=== PATIENT | male | born 1960 | race Caucasian/White ===

== ENCOUNTER → 2017-03-18 16:39 | Outpatient (CLI) | payer MEDICAID, SELFPAY ==
--- NOTE | 2017-03-18 | XR_ITS ---
XR chest 2V INDICATION: No history given COMPARISON: Portable upright chest 08/28/2016 FINDINGS: The cardiovascular structures are unremarkable. No mediastinal shift or hilar mass is evident. The lungs are well expanded and clear bilaterally. The costophrenic sulci are sharp. No significant bony anomalies are apparent. IMPRESSION: Negative chest.
== END ==
PROVIDERS: PCP Family Medicine; Visit Provider Family Medicine
DX: R06.02 Shortness of breath (principal)
CPT/HCPCS: 71046

== ENCOUNTER → 2017-04-01 12:57 | Outpatient (CLI) | payer MEDICAID, SELFPAY ==
[2017-04-01 15:11] VITALS: PULSE 64; PULSE 67
== END ==
PROVIDERS: Family Provider Family Medicine; PCP Family Medicine; Visit Provider Family Medicine
DX: R06.02 Shortness of breath (principal)
CPT/HCPCS: 94060; 94640; 94726; 94729

== ENCOUNTER → 2017-04-19 06:53 | Outpatient (CLI) | payer MEDICAID, SELFPAY ==
--- NOTE | 2017-04-19 07:47 | CT_ITS ---
EXAM: CT LUNG LOW DOSE WO CONTRAST COMPARISON: None HISTORY: 56-year-old male asymptomatic with greater than 35 pack-year smoking history ORDERING PHYSICIAN: Simone Malloy MD PATIENT AGE: 56 years TECHNIQUE: The exam was performed on a GE Light Speed [address] scanner using 2.95 mGy CTDI. A low dose helical CT CHEST was performed on a multi-detector scanner The LDCT was performed in a facility that meets the criteria for the screening program. Data regarding this exam was submitted to [employer] which is an approved registry. The order for this exam indicates that it came as a result of a lung cancer screening counseling shard decision-making visit that included all the elements required of such a visit including smoking cessation. The radiologist interpreting this exam meets the [facility] criteria for the LDCT lung cancer screening program. The exam is reported using the Lung-RADS classification scale and reported to the [employer] registry. NOTE: THIS STUDY WAS PERFORMED FOR THE SPECIFIC PURPOSES OF LUNG CANCER SCREENING AND IS NOT AN ALTERNATIVE TO DIAGNOSTIC CHEST CT. RADIATION DOSE: CTDI vol(CT dose Index-volume) = 2.95mG DLP (Dose Length Product) = 113.94 mGcm FINDINGS: There are centrilobular and paraseptal emphysematous changes. There is a 3 mm noncalcified left upper lobe nodule. No suspicious nodules evident. There are scattered small bilateral axillary lymph nodes are calcified right hilar lymph nodes. Coronary artery calcifications are present. Small hiatal hernia. IMPRESSION: 1. Lung RADS Category: 2, benign 2. Other findings: Coronary artery calcifications suggesting coronary artery disease Old granulomatous disease. Centrilobular and paraseptal emphysema RECOMMENDATIONS: 12 month LDCT screening
== END ==
PROVIDERS: Family Provider Family Medicine; PCP Family Medicine; Visit Provider Family Medicine
DX: Z87.891 Personal history of nicotine dependence (principal); Z12.2 Encounter for screening for malignant neoplasm of respiratory organs

== ENCOUNTER → 2017-04-22 13:33 | Outpatient (POV) | payer MEDICAID, SELFPAY | PROVIDERS: Family Provider Family Medicine; PCP Family Medicine; Visit Provider Specialist | DX: M79.662 Pain in left lower leg (principal); M79.661 Pain in right lower leg | CPT/HCPCS: 95886; 95907 ==

== ENCOUNTER 2025-01-07 09:36 | Outpatient (CLI) | payer MEDICAID, SELFPAY ==
--- OUTSIDE RECORDS SUMMARY | 2025-01-07 09:40 | XMS_ITS | Data Portability ---
Author Organization [facility] Address [address] [facility] [place] [facility] [place] [address] Assessment Encounter Date Assessment Date Assessment LastModified by Organization Details LastModified Time 07/30/2024 07/30/2024 will call [employer], number given Not available 07/30/2024 09:50:35 08/31/2024 08/31/2024 Will return for fasting labs [email or web address] Not available 08/31/2024 10:01:55 12/21/2024 12/21/2024 declines flu Not available 1 19:40:26 Plan of Treatment Reminders Order Date Submit Date Provider Last Modified By Organization Details Last Modified Time Details Appointments None recorded. Lab CBC w/ auto diff 2024 EBER [facility], [address], [address] [address], [place], [address], 13:07:43 lipid panel, serum 2024 025 EBER [facility], [address], [place] [address], [place], [address], 13:07:44 CMP, serum or plasma 2024 025 EBER [facility], [address], [place] [address], [place], [address], 13:07:44 HbA1c (hemoglobin A1c), blood 2024 025 EBER [facility], [address], [place], [place], [address], 13:07:45 hepatitis panel (A+B+C), acute, serum 2024 025 EBER [facility], [address], [place] [address], [place], [address], 13:07:43 vitamin D, 25-hydroxy, total, serum 2024 025 E[facility], [address], [place], [place], [address], 13:07:46 testosteron e, free + total, serum 2024 025 E[facility], [address], [place], [place], [address], 13:07:45 CBC w/ auto diff 2024 025 [facility], [address], [place], [place], [address], 16:08:00 CMP, serum or plasma 2024 025 [facility], [address], [place] [address], [place], [address], 16:08:00 lipid panel, serum 2024 025 [facility], [address], [place], [place], [address], 5 16:08:01 HbA1c (hemoglobin A1c), blood 2024 025 [facility], [address] [place] [address], [address], 10:22:02 cobalamin and folate panel, serum 2024 025 [facility], [address], [place], [place], [address], 5 16:08:01 vitamin D, 25-hydroxy, total, serum 2024 025 [facility], [address], [place] [address], [place], [address], 5 16:08:03 TSH + free T4, serum 2024 025 [facility], [address], [place], [place], [address], 16:07:59 testosteron e, free + total, serum 2024 025 [facility], [address], [place], [place], [address], 5 16:08:02 angelina-bar r virus (ebv) IgG + IgM panel, serum 2024 025 [facility], [address], [place] [address], [place], [address], 5 16:08:01 PSA, serum or plasma 2024 025 [facility], [address], [place] [address], [place], [address], 16:08:02 Referral None recorded. Procedures None recorded. Surgeries None recorded. Imaging None recorded. Medication Orders senna 8.6 mg tablet 2024 [facility], [address] [place], [address], 5 14:04:15 Citrucel 500 mg tablet 2024 [facility], [address] [place], [address], 5 14:04:42 lidocaine 3 %-hydrocort isone 0.5 % rectal cream 2024 025 [facility], [address], [address], 5 14:05:15 atorvastati n 20 mg tablet 2024 025 [facility], [address], [address], 5 14:04:17 lisinopril 40 mg tablet 2024 025 [facility], [address], [address], 5 09:29:17 Farxiga 10 mg tablet 2024 025 [facility], [address], [address], 5 09:30:24 mupirocin 2 % topical ointment 2024 025 [facility], [address], [address], 5 09:34:22 amlodipine 5 mg tablet 2024 025 [facility], [address], [address], 5 09:37:36 Farxiga 10 mg tablet 2024 025 [facility], [address], [address], 5 09:50:38 methocarbam ol 500 mg tablet 2024 025 [facility], [address], [address], 5 09:37:37 lisinopril 40 mg tablet 2024 025 [facility], [address], [address], 5 16:46:28 glipizide 5 mg tablet 2024 025 [facility], [address], [address], 16:46:26 metformin 1,000 mg tablet 2024 025 [facility], [address], [address], 16:46:28 methocarbam ol 500 mg tablet 2024 025 [facility], [address], [address], 16:47:31 ibuprofen 800 mg tablet 2024 025 [facility], [address], [address], 5 16:47:31 prednisone 20 mg tablet 2024 025 [facility], [address], [address], 5 05:01:32 Patient TargetsNo targets recorded. Patient Instructions Encounter Date Encounter Id Patient Instructions Last Modified By Organization Details Last Modified Time 07/06/2024 [id number] learning about type 2 diabetes [email or web address] Not available 07/06/2024 16:46:19 type 2 diabetes: care instructions [email or web address] Not available 07/06/2024 16:46:19 All questions answered and pt/guardian satisfied with treatment plan. Call with changes RTC or ED if symptoms change or worsen Keep next interval checkup Cont. chronic meds as prescribed Chronic conditions are stable Discussed natural and expected course of this diagnosis and need to alert the office if symptoms do not follow expected course or if any worsens [email or web address] Not available 07/07/2024 21:21:30 07/30/2024 [id number] learning about type 2 diabetes [email or web address] Not available 07/30/2024 09:37:29 type 2 diabetes: care instructions [email or web address] Not available 07/30/2024 09:37:29 All questions answered and pt/guardian satisfied with treatment plan. Call with changes RTC or ED if symptoms change or worsen Keep next interval checkup Cont. chronic meds as prescribed Chronic conditions are stable Discussed natural and expected course of this diagnosis and need to alert the office if symptoms do not follow expected course or if any worsens [email or web address] Not available 07/30/2024 09:31:45 08/31/2024 [id number] learning about type 2 diabetes [email or web address] Not available 08/31/2024 09:29:10 type 2 diabetes: care instructions [email or web address] Not available 08/31/2024 09:29:10 medical record request* - please provide any prior chest CT or LDCT Not available 12/11/2024 16:42:18 medical record request* [email or web address] Not available 09/24/2024 17:40:04 skin lesions: care instructions Not available 08/31/2024 09:34:17 All questions answered and pt/guardian satisfied with treatment plan. Call with changes RTC or ED if symptoms change or worsen Keep next interval checkup Cont. chronic meds as prescribed Chronic conditions are stable Discussed natural and expected course of this diagnosis and need to alert the office if symptoms do not follow expected course or if any worsens [email or web address] Not available 08/31/2024 10:01:46 12/21/2024 [id number] learning about type 2 diabetes [email or web address] Not available 12/21/2024 10:01:33 type 2 diabetes: care instructions [email or web address] Not available 12/21/2024 10:01:33 high cholesterol : care instructions [email or web address] Not available 12/21/2024 10:01:33 hemorrhoids: car e instructions [email or web address] Not available 12/27/2024 19:40:33 All questions answered and pt/guardian satisfied with treatment plan. Call with changes RTC or ED if symptoms change or worsen Keep next interval checkup Cont. chronic meds as prescribed Chronic conditions are stable Discussed natural and expected course of this diagnosis and need to alert the office if symptoms do not follow expected course or if any worsens [email or web address] Not available 12/27/2024 19:40:33 12/24/2024 [id number] constipation: care instructions [email or web address] Not available 12/24/2024 14:04:11 All questions answered and pt/guardian satisfied with treatment plan. Call with changes RTC or ED if symptoms change or worsen Keep next interval checkup Cont. chronic meds as prescribed Chronic conditions are stable Discussed natural and expected course of this diagnosis and need to alert the office if symptoms do not follow expected course or if any worsens [email or web address] Not available 12/24/2024 17:29:03 Reason for Referral None Reported. Results Created Date Observation Date Name Description Value Unit Range Abnormal Flag Note LastModifiedBy Organization Detail LastModifiedTime 09/01/19 25 08/31/2024 HbA1c (hemo globi n A1c), blood HbA1C 7.9 % Not Available [address], [address], 08/31/2024 09:58:56 09/04/19 25 09/04/2024 TSH+F REE T4 TSH 1.720 uIU/m L 0.450- 4.500 normal Not Available [facility] ([facility]) [address] [place], [address], 09/07/2024 16:07:59 09/04/19 25 09/04/2024 TSH+F REE T4 T4,free(dire ct) 1.31 NG/dL 0.82-1 .77 normal Not Available [facility] ([facility]) [address] [place], [address], 09/07/2024 16:07:59 09/04/19 25 09/04/2024 CBC WITH DIFFE RENTI AL/PL ATELE T WBC 5.7 x10e3 /uL 3.4-10 .8 normal Not Available [facility] ([facility]) [address] [facility], [place], [address], 09/07/2024 16:08:00 09/04/19 25 09/04/2024 CBC WITH DIFFE RENTI AL/PL ATELE T RBC 5.14 x10e6 /uL 4.14-5 .80 normal Not Available [facility] ([facility]) [address] [facility], [place], [address], 09/07/2024 16:08:00 09/04/19 25 09/04/2024 CBC WITH DIFFE RENTI AL/PL ATELE T hemoglobin 14.9 g/dL 13.0-1 7.7 normal Not Available [facility] ([facility]) [address] [facility], [place], [address], 09/07/2024 16:08:00 09/04/19 25 09/04/2024 CBC WITH DIFFE RENTI AL/PL ATELE T hematocrit 47.3 % 37.5-5 1.0 normal Not Available [facility] ([facility]) [address] [place], [address], 09/07/2024 16:08:00 09/04/19 25 09/04/2024 CBC WITH DIFFE RENTI AL/PL ATELE T MCV 92 fL 79-97 normal Not Available [facility] ([facility]) [address] [place], [address], 09/07/2024 16:08:00 09/04/19 25 09/04/2024 CBC WITH DIFFE RENTI AL/PL ATELE T MCH 29.0 pg 26.6-3 3.0 normal Not Available [facility] ([facility]) [address] [place], [address], 09/07/2024 16:08:00 09/04/19 25 09/04/2024 CBC WITH DIFFE RENTI AL/PL ATELE T MCHC 31.5 g/dL 31.5-3 5.7 normal Not Available [facility] ([facility]) [address] [facility], [place], [address], 09/07/2024 16:08:00 09/04/19 25 09/04/2024 CBC WITH DIFFE RENTI AL/PL ATELE T RDW 13.0 % 11.6-1 5.4 Not Available [facility] ([facility]) [address] [facility], [place], [address], 09/07/2024 16:08:00 09/04/19 25 09/04/2024 CBC WITH DIFFE RENTI AL/PL ATELE T platelets 197 x10e3 /uL 150-45 0 normal Not Available [facility] ([facility]) [address] [facility], [place], [address], 09/07/2024 16:08:00 09/04/19 25 09/04/2024 CBC WITH DIFFE RENTI AL/PL ATELE T neutrophils 54 % not estab. normal Not Available [facility] ([facility]) [address] [facility], [place], [address], 09/07/2024 16:08:00 09/04/19 25 09/04/2024 CBC WITH DIFFE RENTI AL/PL ATELE T lymphs 32 % not estab. normal Not Available [facility] ([facility]) [address] [place], [address], 09/07/2024 16:08:00 09/04/19 25 09/04/2024 CBC WITH DIFFE RENTI AL/PL ATELE T monocytes 9 % not estab. normal Not Available [facility] ([facility]) [address] [place], [address], 09/07/2024 16:08:00 09/04/19 25 09/04/2024 CBC WITH DIFFE RENTI AL/PL ATELE T eos 3 % not estab. normal Not Available [facility] ([facility]) [address] [place], [address], 09/07/2024 16:08:00 09/04/19 25 09/04/2024 CBC WITH DIFFE RENTI AL/PL ATELE T basos 2 % not estab. normal Not Available [facility] ([facility]) [address] [facility], [place], [address], 09/07/2024 16:08:00 09/04/19 25 09/04/2024 CBC WITH DIFFE RENTI AL/PL ATELE T immature cells LENS MOUNTER Not Available [facility] ([facility]) [address] [place], [address], 09/07/2024 16:08:00 09/04/19 25 09/04/2024 CBC WITH DIFFE RENTI AL/PL ATELE T neutrophils (absolute) 3.1 x10e3 /uL 1.4-7. 0 normal Not Available [facility] ([facility]) [address] [place], [address], 09/07/2024 16:08:00 09/04/19 25 09/04/2024 CBC WITH DIFFE RENTI AL/PL ATELE T lymphs (absolute) 1.8 x10e3 /uL 0.7-3. 1 normal Not Available [facility] ([facility]) [address] [place], [address], 09/07/2024 16:08:00 09/04/19 25 09/04/2024 CBC WITH DIFFE RENTI AL/PL ATELE T monocytes(ab solute) 0.5 x10e3 /uL 0.1-0. 9 normal Not Available [facility] ([facility]) [address] [place], [address], 09/07/2024 16:08:00 09/04/19 25 09/04/2024 CBC WITH DIFFE RENTI AL/PL ATELE T eos (absolute) 0.2 x10e3 /uL 0.0-0. 4 normal Not Available [facility] ([facility]) [address] [facility], [place], [address], 09/07/2024 16:08:00 09/04/19 25 09/04/2024 CBC WITH DIFFE RENTI AL/PL ATELE T baso (absolute) 0.1 x10e3 /uL 0.0-0. 2 normal Not Available [facility] ([facility]) [address] [facility], [place], [address], 09/07/2024 16:08:00 09/04/19 25 09/04/2024 CBC WITH DIFFE RENTI AL/PL ATELE T immature granulocytes 0 % not estab. Not Available [facility] ([facility]) [address] [place], [address], 09/07/2024 16:08:00 09/04/19 25 09/04/2024 CBC WITH DIFFE RENTI AL/PL ATELE T immature grans (abs) 0.0 x10e3 /uL 0.0-0. 1 Not Available [facility] ([facility]) [address] [place], [address], 09/07/2024 16:08:00 09/04/19 25 09/04/2024 CBC WITH DIFFE RENTI AL/PL ATELE T NRBC LENS MOUNTER Not Available [facility] ([facility]) [address] [place], [address], 09/07/2024 16:08:00 09/04/19 25 09/04/2024 CBC WITH DIFFE RENTI AL/PL ATELE T hematology comments: LENS MOUNTER Not Available [facility] ([facility]) [address] [place], [address], 09/07/2024 16:08:00 09/04/19 25 09/04/2024 COMP. METAB OLIC PANEL (14) glucose 151 mg/dL 70-99 above high normal Not Available [facility] ([facility]) [address] [place], [address], 09/07/2024 16:08:00 09/04/19 25 09/04/2024 COMP. METAB OLIC PANEL (14) BUN 20 mg/dL 8-27 normal Not Available [facility] ([facility]) [address] [place], [address], 09/07/2024 16:08:00 09/04/19 25 09/04/2024 COMP. METAB OLIC PANEL (14) creatinine 1.08 mg/dL 0.76-1 .27 normal Not Available [facility] ([facility]) [address] [place], [address], 09/07/2024 16:08:00 09/04/19 25 09/04/2024 COMP. METAB OLIC PANEL (14) eGFR 78 mL/mi n/1.7 3 >59 normal Not Available [facility] ([facility]) [address] [place], [address], 09/07/2024 16:08:00 09/04/19 25 09/04/2024 COMP. METAB OLIC PANEL (14) BUN/creatini ne ratio 19 10-24 normal Not Available [facility] ([facility]) [address] [facility] [place], [address], 09/07/2024 16:08:00 09/04/19 25 09/04/2024 COMP. METAB OLIC PANEL (14) sodium 133 mmol/ L 134-14 4 below low normal Not Available [facility] ([facility]) [address] [facility], [address], 09/07/2024 16:08:00 09/04/19 25 09/04/2024 COMP. METAB OLIC PANEL (14) potassium 4.3 mmol/ L 3.5-5. 2 normal Not Available [facility] ([facility]) [address] [facility] [place], [address], 09/07/2024 16:08:00 09/04/19 25 09/04/2024 COMP. METAB OLIC PANEL (14) chloride 98 mmol/ L 96-106 normal Not Available [facility] ([facility]) [address] [place], [address], 09/07/2024 16:08:00 09/04/19 25 09/04/2024 COMP. METAB OLIC PANEL (14) carbon dioxide, total 18 mmol/ L 20-29 below low normal Not Available [facility] ([facility]) [address], [place], [address], 09/07/2024 16:08:00 09/04/19 25 09/04/2024 COMP. METAB OLIC PANEL (14) calcium 9.5 mg/dL 8.6-10 .2 normal Not Available [facility] ([facility]) [address] [place], [address], 09/07/2024 16:08:00 09/04/19 25 09/04/2024 COMP. METAB OLIC PANEL (14) protein, total 7.2 g/dL 6.0-8. 5 normal Not Available [facility] ([facility]) [address] [facility] [place], [address], 09/07/2024 16:08:00 09/04/19 25 09/04/2024 COMP. METAB OLIC PANEL (14) albumin 4.4 g/dL 3.9-4. 9 normal Not Available [facility] ([facility]) [address] [facility] [place], [address], 09/07/2024 16:08:00 09/04/19 25 09/04/2024 COMP. METAB OLIC PANEL (14) globulin, total 2.8 g/dL 1.5-4. 5 Not Available [facility] ([facility]) [address] [facility], [address], 09/07/2024 16:08:00 09/04/19 25 09/04/2024 COMP. METAB OLIC PANEL (14) bilirubin, total 0.4 mg/dL 0.0-1. 2 normal Not Available [facility] ([facility]) [address] [place], [address], 09/07/2024 16:08:00 09/04/19 25 09/04/2024 COMP. METAB OLIC PANEL (14) alkaline phosphatase 62 IU/L 44-121 normal Not Available [facility] ([facility]) [address] [place], [address], 09/07/2024 16:08:00 09/04/19 25 09/04/2024 COMP. METAB OLIC PANEL (14) AST (SGOT) 28 IU/L 0-40 normal Not Available [facility] ([facility]) [address] [place], [address], 09/07/2024 16:08:00 09/04/19 25 09/04/2024 COMP. METAB OLIC PANEL (14) ALT (SGPT) 38 IU/L 0-44 normal Not Available [facility] ([facility]) [address] [place], [address], 09/07/2024 16:08:00 09/04/19 25 09/04/2024 LIPID PANEL cholesterol, total 171 mg/dL 100-19 9 normal Not Available [facility] ([facility]) [address] [place], [address], 09/07/2024 16:08:00 09/04/19 25 09/04/2024 LIPID PANEL triglyceride s 132 mg/dL 0-149 normal Not Available [facility] ([facility]) [address] [place], [address], 09/07/2024 16:08:00 09/04/19 25 09/04/2024 LIPID PANEL HDL cholesterol 34 mg/dL >39 below low normal Not Available [facility] ([facility]) [address] [place], [address], 09/07/2024 16:08:00 09/04/19 25 09/04/2024 LIPID PANEL VLDL cholesterol marcella 24 mg/dL 5-40 Not Available [facility] ([facility]) [address] [facility], [place], [address], 09/07/2024 16:08:00 09/04/19 25 09/04/2024 LIPID PANEL LDL chol calc ([facility]) 113 mg/dL 0-99 above high normal Not Available [facility] ([facility]) [address] [facility], [place], [address], 09/07/2024 16:08:00 09/04/19 25 09/04/2024 LIPID PANEL LDL calc comment: LENS MOUNTER Not Available [facility] ([facility]) [address] [facility], [place], [address], 09/07/2024 16:08:00 09/04/19 25 09/04/2024 VITAM IN B12 AND FOLAT E vitamin B12 489 pg/mL 232-12 45 normal Not Available [facility] ([facility]) [address] [facility], [place], [address], 09/07/2024 16:08:01 09/04/19 25 09/04/2024 VITAM IN B12 AND FOLAT E folate (folic acid), serum 13.8 NG/mL >3.0 normal A serum folat e rosangela ntrat ion of less than 3.1 ng/mL is consi dered to repre sent clini marcella defic iency . Not Available [facility] ([facility]) [address] [facility], [place], [address], 09/07/2024 16:08:01 09/04/19 25 09/07/2024 EBVCA (IGG/ M) ebv Ab vca, IgM <36.0 U/mL 0.0-35 .9 Negat shamika <36.0 Equiv ocal 36.0 - 43.9 Posit shamika >43.9 Not Available [facility] ([facility]) [address] [place], [address], 09/07/2024 16:08:01 09/04/19 25 09/07/2024 EBVCA (IGG/ M) ebv Ab vca, IgG >600.0 U/mL 0.0-17 .9 above high normal Negat shamika <18.0 Equiv ocal 18.0 - 21.9 Posit shamika >21.9 Not Available [facility] ([facility]) [address] [facility], [place], [address], 09/07/2024 16:08:01 09/04/19 25 09/04/2024 TESTO STERO NE,FR EE AND TOTAL testosterone 236 NG/dL 264-91 6 below low normal Adult male refer ence inter alan is based on a popul ation of healt hy nonob patricio males (BMI <30) betwe en 19 and 39 years old. Carline marie et.al . JCEM 2017, 102;1 161-1 173. PMID: 51555 103. Not Available [facility] ([facility]) [address] [facility], [place], [address], 09/07/2024 16:08:02 09/04/19 25 09/06/2024 TESTO STERO NE,FR EE AND TOTAL free testosterone (direct) 5.5 pg/mL 6.6-18 .1 below low normal Not Available [facility] ([facility]) [address] [place], [address], 09/07/2024 16:08:02 09/04/19 25 09/04/2024 PSA TOTAL (REFL EX TO FREE) prostate specific Ag 1.8 NG/mL 0.0-4. 0 normal Xuan ECLIA metho dolog y. Accor ding to the Ameri can Urolo gical Assoc iatio n, Serum PSA shoul d decre ase and remai n at undet ectab le level s after radic al prost atect alexa. The AUA defin es bioch emica l recur rence as an initi al PSA value 0.2 ng/mL or great er follo wed by a subse quent confi rmato ry PSA value 0.2 ng/mL or great er. Value s obtai ermias with diffe rent assay metho ds or kits canno t be used inter [facility] . Resul ts canno t be inter prete d as absol joya evide nce of the prese nce or absen ce of [facility] jonathan jaramillo se. Not Available [facility] ([facility]) [address] [facility], [place], [address], 09/07/2024 16:08:02 09/04/19 25 09/04/2024 PSA TOTAL (REFL EX TO FREE) reflex criteria Commen t The perce nt free PSA is perfo rmed on a refle x basis only when the total PSA is betwe en 4.0 and 10.0 ng/mL . Not Available [facility] ([facility]) [address] [facility], [place], [address], 09/07/2024 16:08:02 09/04/19 25 09/04/2024 VITAM IN D, 25-HY DROXY vitamin D, 25-hydroxy 38.7 NG/mL 30.0-1 00.0 Vitam in D defic iency has been defin ed by the Insti tute of Medic ine and an Endoc rine Socie ty pract ice guide line as a level of serum 25-OH vitam in D less than 20 ng/mL (1,2) . The Endoc rine Socie ty went on to furth er defin e vitam in D insuf ficie ncy as a level betwe en 21 and 29 ng/mL (2). 1. IOM (Inst itute of Medic ine). 2010. Dieta ry refer ence intak es for calci um and D. Mari philip [place]: The Nat nal [facility] Press . 2. Klever tian MF, Negar ey [place], Ramin off-F errar i DE LA CRUZ, et al. Evalu ation , treat ment, and preve ntion of vitam in D defic iency : an Endoc rine Socie ty clini marcella pract ice guide line. JCEM. 2010; 96(7) :1911 -30. Not Available [facility] ([facility]) [address] [facility], [place], [address], 09/07/2024 16:08:03 09/04/19 25 09/04/2024 PLEAS E NOTE please note Commen t The date and/o r time of colle ction was not indic ated on the requi sitio n as requi red by state and sair al law. The date of recei pt of the speci men was used as the colle ction date if not suppl ied. Not Available [facility] ([facility]) [address] [facility], [place], [address], 09/07/2024 16:08:03 12/22/19 25 12/22/2024 HAV, HBV, HCV hep A Ab, total Negati ve negati ve Comme nt: The HAV total antib john assay detec ts both IgG and IgM but does not diffe renti ate betwe en them. A negat shamika resul t sugge sts susce ptibi lity to infec tion. A posit shamika resul t could be due to vacci natio n, previ ously resol ignacia infec tion or activ e infec tion. Testi ng for HAV IgM shoul d be perfo rmed if activ e HAV infec tion is suspe cted. [facility] offer s profi les that will autom atica lly refle x posit shamika HAV total antib john resul ts to IgM (e.g. , panel #[id number] HAV Antib john w/ Rfx). Not Available [facility] ([facility]) [address] [facility], [place], [address], 12/24/2024 13:07:43 12/22/19 25 12/22/2024 HAV, HBV, HCV HBsAg screen Negati ve negati ve Not Available [facility] ([facility]) [address] [facility], [place], [address], 12/24/2024 13:07:43 12/22/1912/22/2024 HAV, HBV, HCV hep B surface Ab, qual Non Reacti ve Non React shamika: Not immun e to HBV infec tion. Anti- HBs undet ectab le or less than 10 mIU/m L. React shamika: Evide nce of HBV immun ity. Anti- HBs level s great er than 10 mIU/m L. Not Available [facility] ([facility]) [address] [facility], [place], [address], 12/24/2024 13:07:43 12/22/1912/22/2024 HAV, HBV, HCV hep B core Ab, tot Negati ve negati ve Not Available [facility] ([facility]) [address] [facility], [place], [address], 12/24/2024 13:07:43 12/22/1912/22/2024 HAV, HBV, HCV rfx to hbc IgM Commen t Refle x crite sandra was not met. Not Available [facility] ([facility]) [address], [place], [address], 12/24/2024 13:07:43 12/22/1912/22/2024 HAV, HBV, HCV interpretati on Commen t HBV Serol ogy Inter preta tion Chart ----- ----- ----- ----- ----- ----- ----- ----- ----- ----- ----- ----- ----- -- Inter preta tion HBsAg anti- HBs anti- HBc anti- HBc IgM ----- ----- ----- ----- ----- ----- ----- ----- ----- ----- ----- ----- ----- -- Vargas - Taisha te prese nt: + Taisha te absen t: - Test not indic ated: TNI ----- ----- ----- ----- ----- ----- ----- ----- ----- ----- ----- ----- ----- -- Susce ptibl e (neve r infec jen and no evide nce - - - TNI of vacci natmatthew n) ----- ----- ----- ----- ----- ----- ----- ----- ----- ----- ----- ----- ----- -- Immun e due to sammi al resol ignacia infec tion - + + TNI ----- ----- ----- ----- ----- ----- ----- ----- ----- ----- ----- ----- ----- -- Immun e due to vacci natio n - + - TNI ----- ----- ----- ----- ----- ----- ----- ----- ----- ----- ----- ----- ----- -- Acute Infec tion + - + + ----- ----- ----- ----- ----- ----- ----- ----- ----- ----- ----- ----- ----- -- Chron ic infec tion + - + - ----- ----- ----- ----- ----- ----- ----- ----- ----- ----- ----- ----- ----- -- Inter preta tion uncle ar* - - + +/- ----- ----- ----- ----- ----- ----- ----- ----- ----- ----- ----- ----- ----- -- *Mult iple possi bilit ies: resol ignacia infec tion (most commo n); false - posit sahmika anti- HBc [place] [place] low- level chron ic infec tion ; resol ving acute infec tion. Not Available [facility] ([facility]) [address] [place], [address], 12/24/2024 13:07:43 12/22/19 25 12/22/2024 HAV, HBV, HCV HCV Ab Non Reacti ve non reacti ve Not Available [facility] ([facility]) [address] [place], [address], 12/24/2024 13:07:43 12/22/19 25 12/22/2024 HAV, HBV, HCV interpretati on: Commen t Not infec jen with HCV unles s early or acute infec tion is suspe cted (whic h may be delay ed in an immun ocomp romis ed indiv idual ), or other evide nce exist s to indic ate HCV infec tion. Not Available [facility] ([facility]) [address], [place], [address], 12/24/2024 13:07:43 12/22/19 25 12/22/2024 CBC WITH DIFFE RENTI AL/PL ATELE T WBC 5.5 x10e3 /uL 3.4-10 .8 normal Not Available [facility] ([facility]) [address] [place], [address], 12/24/2024 13:07:43 12/22/19 25 12/22/2024 CBC WITH DIFFE RENTI AL/PL ATELE T RBC 5.31 x10e6 /uL 4.14-5 .80 normal Not Available [facility] ([facility]) [address] [place], [address], 12/24/2024 13:07:43 12/22/19 25 12/22/2024 CBC WITH DIFFE RENTI AL/PL ATELE T hemoglobin 15.6 g/dL 13.0-1 7.7 normal Not Available [facility] ([facility]) [address] [place], [address], 12/24/2024 13:07:43 12/22/1912/22/2024 CBC WITH DIFFE RENTI AL/PL ATELE T hematocrit 47.3 % 37.5-5 1.0 normal Not Available [facility] ([facility]) [address] [place], [address], 12/24/2024 13:07:43 12/22/1912/22/2024 CBC WITH DIFFE RENTI AL/PL ATELE T MCV 89 fL 79-97 normal Not Available [facility] ([facility]) [address] [place], [address], 12/24/2024 13:07:43 12/22/19 25 12/22/2024 CBC WITH DIFFE RENTI AL/PL ATELE T MCH 29.4 pg 26.6-3 3.0 normal Not Available [facility] ([facility]) [address] [place], [address], 12/24/2024 13:07:43 12/22/1912/22/2024 CBC WITH DIFFE RENTI AL/PL ATELE T MCHC 33.0 g/dL 31.5-3 5.7 normal Not Available [facility] ([facility]) [address] [place], [address], 12/24/2024 13:07:43 12/22/19 25 12/22/2024 CBC WITH DIFFE RENTI AL/PL ATELE T RDW 13.0 % 11.6-1 5.4 Not Available [facility] ([facility]) [address], [place], [address], 12/24/2024 13:07:43 12/22/19 25 12/22/2024 CBC WITH DIFFE RENTI AL/PL ATELE T platelets 183 x10e3 /uL 150-45 0 normal Not Available [facility] ([facility]) [address], [place], [address], 12/24/2024 13:07:43 12/22/1912/22/2024 CBC WITH DIFFE RENTI AL/PL ATELE T neutrophils 54 % not estab. normal Not Available [facility] ([facility]) [address], [place], [address], 12/24/2024 13:07:43 12/22/19 25 12/22/2024 CBC WITH DIFFE RENTI AL/PL ATELE T lymphs 31 % not estab. normal Not Available [facility] ([facility]) [address], [place], [address], 12/24/2024 13:07:43 12/22/19 25 12/22/2024 CBC WITH DIFFE RENTI AL/PL ATELE T monocytes 8 % not estab. normal Not Available [facility] ([facility]) [address], [place], [address], 12/24/2024 13:07:43 12/22/19 25 12/22/2024 CBC WITH DIFFE RENTI AL/PL ATELE T eos 5 % not estab. normal Not Available [facility] ([facility]) [address], [place], [address], 12/24/2024 13:07:43 12/22/19 25 12/22/2024 CBC WITH DIFFE RENTI AL/PL ATELE T basos 2 % not estab. normal Not Available [facility] ([facility]) [address], [place], [address], 12/24/2024 13:07:43 12/22/19 25 12/22/2024 CBC WITH DIFFE RENTI AL/PL ATELE T immature cells LENS MOUNTER Not Available [facility] ([facility]) [address], [place], [address], 12/24/2024 13:07:43 12/22/19 25 12/22/2024 CBC WITH DIFFE RENTI AL/PL ATELE T neutrophils (absolute) 3.0 x10e3 /uL 1.4-7. 0 normal Not Available [facility] ([facility]) [address], [place], [address], 12/24/2024 13:07:43 12/22/19 25 12/22/2024 CBC WITH DIFFE RENTI AL/PL ATELE T lymphs (absolute) 1.7 x10e3 /uL 0.7-3. 1 normal Not Available [facility] ([facility]) [address] [place], [address], 12/24/2024 13:07:43 12/22/19 25 12/22/2024 CBC WITH DIFFE RENTI AL/PL ATELE T monocytes(ab solute) 0.5 x10e3 /uL 0.1-0. 9 normal Not Available [facility] ([facility]) [address] [place], [address], 12/24/2024 13:07:43 12/22/19 25 12/22/2024 CBC WITH DIFFE RENTI AL/PL ATELE T eos (absolute) 0.3 x10e3 /uL 0.0-0. 4 normal Not Available [facility] ([facility]) [address] [place], [address], 12/24/2024 13:07:43 12/22/19 25 12/22/2024 CBC WITH DIFFE RENTI AL/PL ATELE T baso (absolute) 0.1 x10e3 /uL 0.0-0. 2 normal Not Available [facility] ([facility]) [address], [place], [address], 12/24/2024 13:07:43 12/22/19 25 12/22/2024 CBC WITH DIFFE RENTI AL/PL ATELE T immature granulocytes 0 % not estab. Not Available [facility] ([facility]) [address], [place], [address], 12/24/2024 13:07:43 12/22/19 25 12/22/2024 CBC WITH DIFFE RENTI AL/PL ATELE T immature grans (abs) 0.0 x10e3 /uL 0.0-0. 1 Not Available [facility] ([facility]) [address], [place], [address], 12/24/2024 13:07:43 12/22/19 25 12/22/2024 CBC WITH DIFFE RENTI AL/PL ATELE T NRBC LENS MOUNTER Not Available [facility] ([facility]) [address], [place], [address], 12/24/2024 13:07:43 12/22/19 25 12/22/2024 CBC WITH DIFFE RENTI AL/PL ATELE T hematology comments: LENS MOUNTER Not Available [facility] ([facility]) [address], [place], [address], 12/24/2024 13:07:43 12/22/19 25 12/22/2024 COMP. METAB OLIC PANEL (14) glucose 126 mg/dL 70-99 above high normal Not Available [facility] ([facility]) [address] [place], [address], 12/24/2024 13:07:44 12/22/19 25 12/22/2024 COMP. METAB OLIC PANEL (14) BUN 13 mg/dL 8-27 normal Not Available [facility] ([facility]) [address] [facility] [place], [address], 12/24/2024 13:07:44 12/22/19 25 12/22/2024 COMP. METAB OLIC PANEL (14) creatinine 1.08 mg/dL 0.76-1 .27 normal Not Available [facility] ([facility]) [address] [facility] [place], [address], 12/24/2024 13:07:44 12/22/19 25 12/22/2024 COMP. METAB OLIC PANEL (14) eGFR 77 mL/mi n/1.7 3 >59 normal Not Available [facility] ([facility]) [address] [facility] [place], [address], 12/24/2024 13:07:44 12/22/19 25 12/22/2024 COMP. METAB OLIC PANEL (14) BUN/creatini ne ratio 12 10-24 normal Not Available [facility] ([facility]) [address], [place], [address], 12/24/2024 13:07:44 12/22/19 25 12/22/2024 COMP. METAB OLIC PANEL (14) sodium 138 mmol/ L 134-14 4 normal Not Available [facility] ([facility]) [address] [facility] [place], [address], 12/24/2024 13:07:44 12/22/19 25 12/22/2024 COMP. METAB OLIC PANEL (14) potassium 4.1 mmol/ L 3.5-5. 2 normal Not Available [facility] ([facility]) [address] [facility] [place], [address], 12/24/2024 13:07:44 12/22/19 25 12/22/2024 COMP. METAB OLIC PANEL (14) chloride 102 mmol/ L 96-106 normal Not Available [facility] ([facility]) [address] [facility] [place], [address], 12/24/2024 13:07:44 12/22/19 25 12/22/2024 COMP. METAB OLIC PANEL (14) carbon dioxide, total 19 mmol/ L 20-29 below low normal Not Available [facility] ([facility]) [address] [facility] [place], [address], 12/24/2024 13:07:44 12/22/19 25 12/22/2024 COMP. METAB OLIC PANEL (14) calcium 9.3 mg/dL 8.6-10 .2 normal Not Available [facility] ([facility]) [address] [facility] [place], [address], 12/24/2024 13:07:44 12/22/1912/22/2024 COMP. METAB OLIC PANEL (14) protein, total 7.0 g/dL 6.0-8. 5 normal Not Available [facility] ([facility]) [address] [facility] [place], [address], 12/24/2024 13:07:44 12/22/19 25 12/22/2024 COMP. METAB OLIC PANEL (14) albumin 4.5 g/dL 3.9-4. 9 normal Not Available [facility] ([facility]) [address] [facility] [place], [address], 12/24/2024 13:07:44 12/22/19 25 12/22/2024 COMP. METAB OLIC PANEL (14) globulin, total 2.5 g/dL 1.5-4. 5 Not Available [facility] ([facility]) [address] [facility] [place], [address], 12/24/2024 13:07:44 12/22/1912/22/2024 COMP. METAB OLIC PANEL (14) bilirubin, total 0.4 mg/dL 0.0-1. 2 normal Not Available [facility] ([facility]) [address] [facility] [place], [address], 12/24/2024 13:07:44 10/20/20 25 12/22/2024 COMP. METAB OLIC PANEL (14) alkaline phosphatase 62 IU/L 47-123 normal Not Available [facility] ([facility]) [address] [place], [address], 12/24/2024 13:07:44 12/22/19 25 12/22/2024 COMP. METAB OLIC PANEL (14) AST (SGOT) 29 IU/L 0-40 normal Not Available [facility] ([facility]) [address] [place], [address], 12/24/2024 13:07:44 12/22/1912/22/2024 COMP. METAB OLIC PANEL (14) ALT (SGPT) 30 IU/L 0-44 normal Not Available [facility] ([facility]) [address] [place], [address], 12/24/2024 13:07:44 12/22/19 25 12/22/2024 LIPID PANEL cholesterol, total 141 mg/dL 100-19 9 normal Not Available [facility] ([facility]) [address] [place], [address], 12/24/2024 13:07:44 12/22/19 25 12/22/2024 LIPID PANEL triglyceride s 179 mg/dL 0-149 above high normal Not Available [facility] ([facility]) [address] [place], [address], 12/24/2024 13:07:44 12/22/19 25 12/22/2024 LIPID PANEL HDL cholesterol 30 mg/dL >39 below low normal Not Available [facility] ([facility]) [address] [place], [address], 12/24/2024 13:07:44 12/22/19 25 12/22/2024 LIPID PANEL VLDL cholesterol marcella 31 mg/dL 5-40 Not Available [facility] ([facility]) [address] [place], [address], 12/24/2024 13:07:44 12/22/19 25 12/22/2024 LIPID PANEL LDL chol calc ([facility]) 80 mg/dL 0-99 Not Available [facility] ([facility]) [address] [place], [address], 12/24/2024 13:07:44 12/22/19 25 12/22/2024 LIPID PANEL LDL calc comment: LENS MOUNTER Not Available [facility] ([facility]) [address] [place], [address], 12/24/2024 13:07:44 12/22/1912/22/2024 TESTO STERO NE,FR EE AND TOTAL testosterone 418 NG/dL 264-91 6 normal Adult male refer ence inter alan is based on a popul ation of healt hy nonob patricio males (BMI <30) betwe en 19 and 39 years old. Carline marie et.al . JCEM 2017, 102;1 161-1 173. PMID: 61804 103. Not Available [facility] ([facility]) [address] [place], [address], 12/24/2024 13:07:45 12/22/1912/24/2024 TESTO STERO NE,FR EE AND TOTAL free testosterone (direct) 6.5 pg/mL 6.6-18 .1 below low normal Not Available [facility] ([facility]) [address] [place], [address], 12/24/2024 13:07:45 12/22/1912/22/2024 HEMOG LOBIN A1C hemoglobin A1C 6.8 % 4.8-5. 6 above high normal Predi abete s: 5.7 - 6.4 Diabe norma: >6.4 Glyce kaleigh contr ol for adult s with diabe norma: <7.0 Not Available [facility] ([facility]) [address] [place], [address], 12/24/2024 13:07:45 12/22/19 25 12/22/2024 VITAM IN D, 25-HY DROXY vitamin D, 25-hydroxy 41.5 NG/mL 30.0-1 00.0 Vitam in D defic iency has been defin ed by the Insti tute of Medic ine and an Endoc rine Socie ty pract ice guide line as a level of serum 25-OH vitam in D less than 20 ng/mL (1,2) . The Endoc rine Socie ty went on to furth er defin e vitam in D insuf ficie ncy as a level betwe en 21 and 29 ng/mL (2). 1. IOM (Inst itute of Medic ine). 2009. Johanny ry refer ence isabell es for calci um and D. Mari philip [place]: [facility] . 2. Klever tian MF, Negar wagner [place], Ramin off-F errjoya i [place] LA CRUZ, et al. Evalu ation , treat ment, and preve ntion of vitam in D defic iency : an Endoc rine Socie ty clini marcella pract ice guide line. JCEM. 2010; 96(7) :1911 -30. Not Available [facility] ([facility]) [address], [place], [address], 12/24/2024 13:07:46 Result Notes None recorded. Problems Name Problem SNOMED Code Status Onset Date Resolution Date Notes Provider Name and Address Organization Details Recorded Time Hemorrhoids 69584673 Active 2024 Keyshawn Cast PA-C [address], [place], [address], [place] - [facility] 19:40:21 Type 2 diabetes mellitus 33210058 Active 2024 Keyshawn Cast PA-C [address], [place], [address], [place] [facility] 10:48:25 Cramp 61742506 Active 2024 Keyshawn Cast PA-C [address], [place], [address], [place] [facility] 10:54:22 Hypertensive disorder 33897358 Active 2024 GILL Sutherland-C [address], [place], [address], [place] [facility] 11:02:58 Vertigo 977361653 Active 2024 GILL Sutherland-C [address], [place], [address], [place] [facility] 11:09:23 Wheezing 33237555 Active 2024 GILL Sutherland-C [address], [place], [address], [place] [facility] 11:10:22 Hyperlipidemia 09455663 Active 2024 GILL Sutherland-C [address], [place], [address], [place] - [facility] 5 11:11:27 Abnormal vision 4711083 Active 2024 GILL Sutherland-C [address], [place], [address], [place] - [facility] 5 10:34:33 Vitamin D deficiency 78255927 Active 2024 GILL Sutherland-C [address], [place], [address], [place] - [facility] 5 10:45:28 Strain of tendon of medial thigh muscle 820779868 Active 2024 GILL Sutherland-C [address], [place], [address], [place] [facility] 5 16:46:31 Skin lesion 46523624 Active 2024 GILL Sutherland-C [address], [place], [address], [place] [facility] 5 09:33:42 Fatigue 90122552 Active 2024 Keyshawn Cast PA-C [address], [place], [address], [place] - [facility] 5 09:59:10 Testosterone level below reference range 960996513 Active 2024 Keyshawn Cast PA-C [address], [place], [address], [place] [facility] 10:00:30 Bleeding hemorrhoids 85660634 Active 2024 Keyshawn Cast PA-C [address], [place], [address], [place] [facility] 13:42:36 Constipation 57642951 Active 2024 Keyshawn Cast PA-C [address], [place], [address], [place] - [facility] 14:01:18 Problem Notes None recorded. Medical Equipment None Reported. Allergies No known drug allergies Medications Name Sig Start Date Stop Date Status Note LastModified by Organization Details LastModified Time Prescriptio n - Prior Authorizati on Request active Not Available Not Available N ot Available methocarbam ol 500 mg tablet TAKE 1 TABLET BY MOUTH THREE TIMES DAILY NEEDED CAUTION SEDATING active Not Available Not Available No t Available atorvastati n 20 mg tablet Take 1 tablet every day by oral route. 2024 active Not Available Not Available Not Avai lable ibuprofen 800 mg tablet TAKE 1 TABLET BY MOUTH THREE TIMES DAILY active Not Available Not Available No t Available B Complex-Vit floyd B12 tablet Take 1 tablet every day by oral route. 2024 active Not Available Not Available Not Avai lable senna 8.6 mg tablet Start 2 tabs by mouth at bedtime; Max: 4 tabs PO 4 times per day, increase to desired effect 2024 active Not Available Not Available Not Avai lable prednisone 20 mg tablet Take 1 tablet twice a day by oral route for 5 days. 07/18 completed Not Available Not Available Not Available Accu-Chek Softclix Lancets USE TO CHECK GLUCOSE THREE TIMES DAILY active Not Available Not Available No t Available meclizine 12.5 mg tablet TAKE 1 TABLET BY MOUTH TWICE DAILY NEEDED FOR DIZZINESS active Not Available Not Available No t Available amlodipine 5 mg tablet Take 1 tablet every day by oral route. 2024 active Not Available Not Available Not Avai lable metformin 1,000 mg tablet TAKE 1 TABLET BY MOUTH TWICE DAILY active Not Available Not Available No t Available Proctofoam HC 1 %-1 % APPLY 3-4 TIMES DAILY AFTER BOWEL MOVEMENTS FOR HEMORRHOI DS active Not Available Not Available No t Available Citrucel 500 mg tablet Take 2 tablets every day by oral route. 2024 active Not Available Not Available Not Avai lable mupirocin 2 % topical ointment APPLY A SMALL AMOUNT TO THE AFFECTED AREA BY TOPICAL ROUTE 3 TIMES A DAY active Not Available Not Available No t Available ergocalcife rol (vitamin D2) 1,250 mcg (50,000 unit) capsule TAKE 1 CAPSULE BY MOUTH ONCE A WEEK active Not Available Not Available No t Available lidocaine 3 %-hydrocort isone 0.5 % topical cream APPLY 1 APPLICATI ON OF CREAM RECTALLY TWICE DAILY DIRECTED active Not Available Not Available No t Available polyethylen e glycol 3350 17 gram/dose oral powder MIX 17 GRAMS OF POWDER IN 4-8 OUNCES OF LIQUID AND DRINK ONCE DAILY active Not Available Not Available No t Available lisinopril 40 mg tablet TAKE 1 TABLET BY MOUTH ONCE DAILY active Not Available Not Available No t Available glipizide 5 mg tablet TAKE 1 TABLET BY MOUTH TWICE DAILY active Not Available Not Available No t Available Ventolin HFA 90 mcg/actuati on aerosol inhaler INHALE 2 PUFFS BY MOUTH EVERY 4 HOURS NEEDED active Not Available Not Available No t Available lidocaine 3 %-hydrocort isone 0.5 % rectal cream Insert 1 applicato rful twice a day by rectal route as directed. 2024 active Not Available Not Available Not Avai lable FreeStyle Lite Meter kit USE DIRECTED active Not Available Not Available No t Available FreeStyle Lite Strips USE 1 STRIP TO CHECK GLUCOSE ONCE DAILY active Not Available Not Available No t Available Farxiga 10 mg tablet Take 1 tablet every day by oral route. 2024 active Not Available Not Available Not Avai lable Vitals Date Recorded Body height Body mass index (BMI) Body weight Heart rate Oxygen saturation Oxygen saturation in Arterial blood by Pulse oximetry Systolic And Diastolic Provider Name and Address Organization Details Last Updated DateTime 5 185.42 cm 33 kg/m2 571230. 09 g 94 /min 96 % 96 % 120/84 mm[Hg] Prudence Negrete [place] - [facility] 5 15:56:14 Date Recorded Body height Body mass index (BMI) Body weight Heart rate Oxygen saturation Oxygen saturation in Arterial blood by Pulse oximetry Systolic And Diastolic Provider Name and Address Organization Details Last Updated DateTime 5 185.42 cm 32.9 kg/m2 980293. 6 g 80 /min 97 % 97 % 132/86 mm[Hg] Prudence Negrete [place] - [facility] 08:52:51 Date Recorded Body height Body mass index (BMI) Body weight Heart rate Oxygen saturation Oxygen saturation in Arterial blood by Pulse oximetry Systolic And Diastolic Provider Name and Address Organization Details Last Updated DateTime 5 185.42 cm 32.7 kg/m2 887873. 91 g 84 /min 97 % 97 % 128/84 mm[Hg] Prudence Negrete [place] - [facility] 5 08:51:46 Date Recorded Body height Body mass index (BMI) Body weight Heart rate Oxygen saturation Oxygen saturation in Arterial blood by Pulse oximetry Respiratory rate Systolic And Diastolic Provider Name and Address Organization Details Last Updated DateTime 5 185.42 cm 32.3 kg/m2 981556. 13 g 83 /min 97 % 97 % 18 /min 142/90 mm[Hg] Patricia leon [place] - [facility] 5 09:29:37 Date Recorded Body height Body mass index (BMI) Body weight Heart rate Oxygen saturation Oxygen saturation in Arterial blood by Pulse oximetry Systolic And Diastolic Provider Name and Address Organization Details Last Updated DateTime 5 185.42 cm 32.3 kg/m2 516208. 13 g 76 /min 96 % 96 % 140/84 mm[Hg] Prudence Negrete [place] - [facility] 5 13:20:14 Social History Question Answer Notes LastModified by Organizat ion Details LastModified Time Tobacco Smoking Status Never Smoker Prudence wooten [place] - [facility] 05/21/2024 10:19:50 What Is The Highest Grade Or Level Of School You Have Completed Or The Highest Degree You Have Received? [id number] [email or web address] Information not available 05/21/2024 What Was The Date Of Your Most Recent Tobacco Screening? 08/31/2024 [email or web address] Information not available 08/31/2024 What Is Your Relationship Status? Single [email or web address] Information not available 05/21/2024 Has Tobacco Cessation Counseling Been Provided? Yes [email or web address] Information not available 06/03/2024 On What Date Was Tobacco Cessation Counseling Provided? 08/31/2024 [email or web address] Information not available 08/31/2024 Sex: Male Functional Status Question Answer Note LastModified by Organizat ion Details LastModified Time Do you use any illicit or recreational drugs? No [email or web address] Information not available 05/21/2024 What is your level of alcohol consumption? None [email or web address] Information not available 05/21/2024 Are you currently employed? No [email or web address] Information not available 05/21/2024 Are you able to care for yourself independently? Yes [email or web address] Information not available 05/21/2024 Mental Status None recorded. Family History Nothing Reported. Medical History No medical history recorded. Past Encounters Encounter ID Performer Location Encounter Start Date Encounter Closed Date Diagnosis/Indication Diagnosis SNOMED-CT Code Diagnosis ICD10 Code Diagnosis IMO Codes Diagnosis Note [id number] Keyshawn Cast PA-C [address] [address] 05/21/2024 10:03:21 05/21/2024 11:29:47 Hemorrhoids 32473890 K64.9 +/- fissure, taking stool softener at home Type 2 izabel betes mellitus 61229330 E11.9 12.1% A1C in office--st rongly consider insulin, pt preferring to attempt diet + glipizide initiallyP T instructed to watch for high and/or low blood sugars. Monitor fingerstic k BS at home and try to keep a log. Bring log of blood sugar readings to next appointmen t appointmen t if able. Any concerns please call. Cautioned symptoms of hypoglycem ia and advised to keep glucose on hand. Avoid excess carbs and sugary drinks. Attempt to get daily exercise or follow an exercise plan as discussed. Stressed the importance of taking medication s as prescribed . Cramp 76718713 R25.2 Hypertensive disorder 38 451362 I10 Check BP at home. Try to keep daily diary. If SBP >170 or if DBP > 100 call clinic, MD, or seek help. Dangers of high BP discussed. I also recommende d to reduce dietary sodium intake to less than 100 mEq (2.3 g of sodium or 6 g of sodium chloride)/ day. Discussed weight loss, DASH diet and exercise program as lifestyle changes to help control BP. Cautioned to watch for sxs such as chest pain, vision changes, DE LA CRUZ, or SOA and alert clinic or ER if present. Patient ne w to provider [id number] 67488 Z76.89 Vertigo 717063797 R42 Wheezing 10302970 R06.2 Hyperlipidemia 22357425 E78.5 Taking med ication for chronic disease 3625599009 88014 Z76.89 Viral screening 62624152 4 Z11.59 reports neg for HCV and HIV prior [id number] Keyshawn Cast PA-C [facility] [address] [place] [address] 06/03/2024 09:34:34 06/03/2024 10:40:48 Type 2 diabetes mellitus 68213646 E11.9 12.1% A1C in office--st rongly consider insulin, pt preferring to attempt diet + glipizide initiallyP T instructed to watch for high and/or low blood sugars. Monitor fingerstic k BS at home and try to keep a log. Bring log of blood sugar readings to next appointmen t appointmen t if able. Any concerns please call. Cautioned symptoms of hypoglycem ia and advised to keep glucose on hand. Avoid excess carbs and sugary drinks. Attempt to get daily exercise or follow an exercise plan as discussed. Stressed the importance of taking medication s as prescribed . Hemorrhoids 65103109 K64 .9 +/- fissure, taking stool softener at home-mild reducible hemorrhoid visible Abnormal vision 2842332 H54.7 Vitamin D deficiency 347 46515 E55.9 [id number] MONIE Sutherland [facility] [address] [place] [address] 07/06/2024 15:41:05 07/06/2024 16:48:41 Hypertensive disorder 42077180 I10 Check BP at home. Try to keep daily diary. If SBP >170 or if DBP > 100 call clinic, MD, or seek help. Dangers of high BP discussed. I also recommende d to reduce dietary sodium intake to less than 100 mEq (2.3 g of sodium or 6 g of sodium chloride)/ day. Discussed weight loss, DASH diet and exercise program as lifestyle changes to help control BP. Cautioned to watch for sxs such as chest pain, vision changes, [place] CRUZ, or SOA and alert clinic or ER if present. Type 2 izabel betes mellitus 06049942 E11.9 12.1% A1C in office-- rongly consider insulin, pt preferring to attempt diet + glipizide initiallyP T instructed to watch for high and/or low blood sugars. Monitor fingerstic k BS at home and try to keep a log. Bring log of blood sugar readings to next appointmen t appointmen t if able. Any concerns please call. Cautioned symptoms of hypoglycem ia and advised to keep glucose on hand. Avoid excess carbs and sugary drinks. Attempt to get daily exercise or follow an exercise plan as discussed. Stressed the importance of taking medication s as prescribed . Strain of tendon of medial thigh muscle [id number] S76.212A 42990035 Recommend rest, ice, compressio n, elevation, and anti inflamator ies such as NSAIDs. Can alternate APAP and NSAIDs PRN for pain. Bed rest not recommende d, light stretching and activity as tolerated to prevent stiffness. Do not mix different types of NSAIDs. [id number] Keyshawn aCst PA-C [place] [id number] 1 07/30/2024 08:46:05 07/30/2024 09:37:45 Hypertensive disorder 37084308 I10 Check BP at home. Try to keep daily diary. If SBP >170 or if DBP > 100 call clinic, MD, or seek help. Dangers of high BP discussed. I also recommende d to reduce dietary sodium intake to less than 100 mEq (2.3 g of sodium or 6 g of sodium chloride)/ day. Discussed weight loss, DASH diet and exercise program as lifestyle changes to help control BP. Cautioned to watch for sxs such as chest pain, vision changes, [place], or SOA and alert clinic or ER if present. Type 2 izabel betes mellitus 05236103 E11.9 12.1% A1C in office--st rongly consider insulin, pt preferring to attempt diet + glipizide initiallyP T instructed to watch for high and/or low blood sugars. Monitor fingerstic k BS at home and try to keep a log. Bring log of blood sugar readings to next appointmen t appointmen t if able. Any concerns please call. Cautioned symptoms of hypoglycem ia and advised to keep glucose on hand. Avoid excess carbs and sugary drinks. Attempt to get daily exercise or follow an exercise plan as discussed. Stressed the importance of taking medication s as prescribed . Body mass index 30+ - obesity 028899442 E66.9 39775060 Strain of tendon of medial thigh muscle 327399994 S76.212A -improved [id number] MONIE Sutherland [facility] [address] 08/31/2024 08:47:48 08/31/2024 09:29:43 Type 2 diabetes mellitus 89145538 E11.9 12.1% A1C in office--st rongly consider insulin, pt preferring to attempt diet + glipizide initiallyP T instructed to watch for high and/or low blood sugars. Monitor fingerstic k BS at home and try to keep a log. Bring log of blood sugar readings to next appointmen t appointmen t if able. Any concerns please call. Cautioned symptoms of hypoglycem ia and advised to keep glucose on hand. Avoid excess carbs and sugary drinks. Attempt to get daily exercise or follow an exercise plan as discussed. Stressed the importance of taking medication s as prescribed . Hypertensive disorder 38 301927 I10 Check BP at home. Try to keep daily diary. If SBP >170 or if DBP > 100 call clinic, MD, or seek help. Dangers of high BP discussed. I also recommende d to reduce dietary sodium intake to less than 100 mEq (2.3 g of sodium or 6 g of sodium chloride)/ day. Discussed weight loss, DASH diet and exercise program as lifestyle changes to help control BP. Cautioned to watch for sxs such as chest pain, vision changes, [place] CRUZ, or SOA and alert clinic or ER if present. Screening for malignant neoplasm of prostate [id number] Z12.5 075807 Discussed risks vs benefits of screening, patient electing to proceed with screening at this time. History of nicotine dependence [id number] 27592511 Z87.290 0723851 10-12yrs ago quit, had been 2ppd or less for 20yrs; had lung cancer screening 2016 without concerns (Dr. Malloy) Skin lesion 48096413 L98 .9 08756 scabbing to index finger after hitting it with drill Fatigue 49613495 R53.83 5136961 AM labs, before 10am Screening for malignant neoplasm of colon 866532971 Z12.11 091582 [facility] [id number] Keyshawn Cast PA-C [address] [address] 12/21/2024 09:01:56 12/21/2024 10:17:43 Type 2 diabetes mellitus 63923406 E11.9 PT instructed to watch for high and/or low blood sugars. Monitor fingerstic k BS at home and try to keep a log. Bring log of blood sugar readings to next appointmen t appointmen t if able. Any concerns please call. Cautioned symptoms of hypoglycem ia and advised to keep glucose on hand. Avoid excess carbs and sugary drinks. Attempt to get daily exercise or follow an exercise plan as discussed. Stressed the importance of taking medication s as prescribed . Hyperlipidemia 15545474 E78.5 Hypertensive disorder 38 298368 I10 Check BP at home. Try to keep daily diary. If SBP >170 or if DBP > 100 call clinic, MD, or seek help. Dangers of high BP discussed. I also recommende d to reduce dietary sodium intake to less than 100 mEq (2.3 g of sodium or 6 g of sodium chloride)/ day. Discussed weight loss, DASH diet and exercise program as lifestyle changes to help control BP. Cautioned to watch for sxs such as chest pain, vision changes, [place] CRUZ, or SOA and alert clinic or ER if present. Vitamin D deficiency 347 08364 E55.9 Testostero ne level below reference range 755533167 R79.89 181060 History of liver disease 595254609 Z86.19 3625340 likely acute HBV, complete hepatitis screening Active immunization 3387 9002 Z23 5001002 Declines immunizati ons as noted in HPI despite education and counseling . Hemorrhoids 19270015 K64 .9 [id number] +/- fissure, taking stool softener at home-mild reducible hemorrhoid visible -hemorroid - GI scheduled [facility] jan 04 [id number] Keyshawn Cast PA-C [place] [facility] [address] [place] [address] 12/24/2024 13:11:59 12/24/2024 15:08:13 Bleeding hemorrhoids 68530960 K64.9 4319 minimal bleeding, GI scheduled Hyperlipidemia 28318167 E78.5 Constipation 41452389 K5 9.09 258157 very minimal, eliminate any constipati on given hemorrhoid pain; can continue OTC osmotic laxative (magnesium ), watch for dehydratio n Health Concerns Section Related Observation LastModified by Organization Detai ls LastModified Time None Recorded Concern Status LastModified by Organization Details LastModified Time None Recorded Advance Directives Directive None Recorded Payers Insurance Date Sequence Insurance Name Policy Number Policy Castro Covered Member ID Castro Member ID Guarantor Name 12/24/2024 1 [employer] BY [employer] (MEDICAID REPLACEMENT - HMO) Cody Boogie [id number] Cody Boogie 09/15/2024 1 [employer] BY [employer] (MEDICARE REPLACEMENT/A DVANTAGE - HMO) [id number] Cody Boogie [id number] Cody Boogie 09/15/2024 1 MEDICAID-[facility] CHOICES - FFS/TRADITION AL Cody Boogie [id number] Cody Boogie Notes Date Note Type Note Provider Name and Address Organization Details Recorded Time 5 text/html Patient presents to office for follow up. Patient with hx of HTN and DMII. Patient states will need refills on medications. Patient reports groin pain (left), states was weed eating yard, feels may have pulled muscle. Reports has been monitoring diet, doing well with medication, seeing BS running in 150s regularly at home. No other symptoms or concerns reported. Keyshawn Cast PA-C [facility] [address], [place], [address], [place] - [facility] 07/07/2024 21:23:41 5 text/html Patient presents to office for follow up. Patient states was seen by Dr. Lion Glaser, general surgeon, bond writer will request records. Patient has not scheduled eye appt.home BS- 150-300averaging around 200, improving. Labs:Please let patient know that labwork looks good with few exceptions;glucose elevated, 388, monitor finger sticks, needing to be lower as discussed in office, if not improving with diet changes and addition of glipizide notify office, insulin would help lower if med/diet changes are not enoughsodium slightly low, can increase dietary intakevit d is low, rec supplementthyroid function, cbc, cmp otherwise, b12 WNL, no other concerns No other symptoms or concerns reported. LN:Patient presents to office for follow up. Patient with hx of HTN and DMII. Patient states will need refills on medications. Patient reports groin pain (left), states was weed eating yard, feels may have pulled muscle. Reports has been monitoring diet, doing well with medication, seeing BS running in 150s regularly at home. No other symptoms or concerns reported. Keyshawn Cast PA-C [address], [place], [address], [place] - [facility] 08/02/2024 19:45:59 5 text/html Patient is a 63yo male presenting to office for recheck of Hgb A1c. Patient states when monitoring fsbs at home, readings have been less than 200. Patient states has modified diet since last visit. Taking medication without AE. Has not been taking atorvastatin. Reports feeling drained and fatigued most days, concerned about testosterone. Not concerned about quality of sleep.Patient denies any other issues/concerns this visit. 7.9% A1C in office Health Maintenance: [facility]:Micro[facility]in: Flu:Covid:Tdap (Q10):UTD reports 3 yrs ago receivedShingles (50+): will talk to pharmacistPneumonia (65+):Colon Cancer Screening (45+): 2yrs ago colonoscopy in [place] thinks 3-5yr repeat Smoker: years ago (10-12yrs quit), 2ppd or less for 20yrs; had lung cancer screening 2015 AAA (65+):PSA: Discussed risks vs benefits of screening, patient electing to proceed with screening at this time. LN:Patient presents to office for follow up. Patient states was seen by Dr. Lion Glaser, general surgeon, bond writer will request records. Patient has not scheduled eye appt.home BS- 150-300averaging around 200, improving. Labs:Please let patient know that labwork looks good with few exceptions;glucose elevated, 388, monitor finger sticks, needing to be lower as discussed in office, if not improving with diet changes and addition of glipizide notify office, insulin would help lower if med/diet changes are not enoughsodium slightly low, can increase dietary intakevit d is low, rec supplementthyroid function, cbc, cmp otherwise, b12 WNL, no other concerns No other symptoms or concerns reported. Keyshawn Cast PA-C [address], [place], [address], [place] [facility] 08/31/2024 10:03:52 5 text/html 64yoM presents for FU. Concern for Low testosterone given fatigue. DMII last A1C 7.9, greatly improved from prior. No concerns for lows. Has GI scheduled [facility] jan 04 for hemorroids. Pt denies chest pain, SOA, difficulty eating or drinking, changes in bathroom habits, syncope/presyncope, or any other concerns. Declines Flu. labs:Please let patient know that labwork looks good with few exceptions;Cholesterol is elevated, try to take low fat diet (avoid greasy, fatty foods) and increase exercise.-is pt taking atorvastatin medication? would rec taking, can discuss alternative if AE presenttestosterone is low, it is worth repeating in 2-3 months to verify, currently unable to rx for replacement and will have to discuss with urology if interested in replacementno evidence of active infection or other deficiencies to contribute to fatiguethyroid function, cbc, cmp, b12, psa, vit D WNL; Other labwork is stable and without concerns LN:Patient is a 63yo male presenting to office for recheck of Hgb A1c. Patient states when monitoring fsbs at home, readings have been less than 200. Patient states has modified diet since last visit. Taking medication without AE. Has not been taking atorvastatin. Reports feeling drained and fatigued most days, concerned about testosterone. Not concerned about quality of sleep.Patient denies any other issues/concerns this visit. 7.9% A1C in office Health Maintenance: DMEye exam: scheduled october 03[facility] Exam:Microalbumin: Flu:Covid:Tdap (Q10):UTD reports 3 yrs ago receivedShingles (50+): will talk to pharmacistPneumonia (65+):Colon Cancer Screening (45+): 2yrs ago colonoscopy [place] thinks 3-5yr repeat Smoker: years ago (10-12yrs quit), 2ppd or less for 20yrs; had lung cancer screening 2015 AAA (65+):PSA: Discussed risks vs benefits of screening, patient electing to proceed with screening at this time. Keyshawn Cast PA-C [address], [place], [address], [place] - [facility] 12/27/2024 19:41:45 text/html Patient presents to office with complaints of hemorrhoids. Patient reports pain, burning and itching. Patient states is scheduled at [facility] 01/05 with specialist. Reports able to sit comfortably, rarely noticing blood with BMs, none in bowel. Concern for throbbing pain that may or may not occur appx 2hrs after defecation, can be very bothersome. No significant constipation but BMs can be type 1-2 bristol. No other symptoms or concerns reported. Keyshawn Cast PA-C [address], [place], [address], [place] - [facility] 12/24/2024 17:31:10
--- OUTSIDE RECORDS SUMMARY | 2025-01-07 09:41 | XMS_ITS | Continuity of Care Document ---
Author Organization Clarissa Pichardo [facility] Address [address] [place] [address] Assessment No assessment recorded. Plan of Treatment Reminders Order Date Submit Date Provider Last Modified By Organization Details Last Modified Time Details Appointments None recorded. Lab None recorded. Referral None recorded. Procedures None recorded. Surgeries None recorded. Imaging None recorded. Medication Orders senna 8.6 mg tablet 2024 [facility], [address], [address], 14:04:15 Citrucel 500 mg tablet 2024 [facility], [address], [address], 14:04:42 lidocaine 3 %-hydrocort isone 0.5 % rectal cream 2024 [facility], [address], [address], 14:05:15 atorvastati n 20 mg tablet 2024 [facility], [address], [address], 14:04:17 Patient TargetsNo targets recorded. Patient Instructions Encounter Date Encounter Id Patient Instructions Last Modified By Organization Details Last Modified Time 12/24/2024 [id number] constipation: care instructions [email or web address] Not available 12/24/2024 14:04:11 All questions answered and pt/guardian satisfied with treatment plan. Call with changes RTC or ED if symptoms change or worsen Keep next interval checkup Cont. chronic meds as prescribed Chronic conditions are stable Discussed natural and expected course of this diagnosis and need to alert the office if symptoms do not follow expected course or if any worsens [email or web address] Not available 12/24/2024 17:29:03 Reason for Referral None Reported. Results Created Date Observation Date Name Description Value Unit Range Abnormal Flag Note LastModifiedBy Organization Detail LastModifiedTime 12/22/1912/22/2024 HAV, HBV, HCV hep A Ab, total [...] Antib john w/ Rfx). Not Available [facility] ([facility]) [address], [place], [address], 12/24/2024 13:07:43 12/22/1912/22/2024 HAV, HBV, HCV HBsAg screen Negati ve negati ve Not Available [facility] ([facility]) [address], [place], [address], 12/24/2024 13:07:43 12/22/1912/22/2024 HAV, HBV, HCV hep B surface Ab, qual Non Reacti ve Non React shamika: Not immun e to HBV infec tion. Anti- HBs undet ectab le or less than 10 mIU/m L. React shamika: Evide nce of HBV immun ity. Anti- HBs level s great er than 10 mIU/m L. Not Available [facility] ([facility]) [address] [place], [address], 12/24/2024 13:07:43 12/22/19 25 12/22/2024 HAV, HBV, HCV hep B core Ab, tot Negati ve negati ve Not Available [facility] ([facility]) [address] [place], [address], 12/24/2024 13:07:43 12/22/1912/22/2024 HAV, HBV, HCV rfx to hbc IgM Commen t Refle x crite sandra was not met. Not Available [facility] ([facility]) [address] [place], [address], 12/24/2024 13:07:43 12/22/1912/22/2024 HAV, HBV, HCV interpretati [...] evide nce - - - TNI of gilmai ernaio n) ----- ----- ----- ----- ----- ----- ----- ----- ----- ----- ----- ----- ----- -- Immun e due to natur al resol ignacia infec tion - + [...] tion (most commo n); false - posit shamika anti- HBc [place] [place] low- level chron ic infec tion ; resol ving acute infec tion. Not Available [facility] ([facility]) [address], [place], [address], 12/24/2024 13:07:43 12/22/1912/22/2024 HAV, HBV, HCV HCV Ab Non Reacti ve non reacti ve Not Available [facility] ([facility]) [address] [place], [address], 12/24/2024 13:07:43 12/22/1912/22/2024 HAV, HBV, HCV interpretati on: Commen t Not infec jen with HCV unles s early or acute infec tion is suspe cted (whic h may be delay ed in an immun ocomp romis ed indiv idual ), or other evide nce exist s to indic ate HCV infec tion. Not Available [facility] ([facility]) [address], [place], [address], 12/24/2024 13:07:43 12/22/19 25 12/22/2024 CBC WITH DIFFE RENTI AL/PL ATELE T WBC 5.5 x10e3 /uL 3.4-10 .8 normal Not Available [facility] ([facility]) [address] [place], [address], 12/24/2024 13:07:43 12/22/1912/22/2024 CBC WITH DIFFE RENTI AL/PL ATELE T RBC 5.31 x10e6 /uL 4.14-5 .80 normal Not Available [facility] ([facility]) [address] [place], [address], 12/24/2024 13:07:43 10/20/12/22/2024 CBC WITH DIFFE RENTI AL/PL ATELE T hemoglobin 15.6 g/dL 13.0-1 7.7 normal Not Available [facility] ([facility]) [address] [place], [address], 12/24/2024 13:07:43 12/22/19 25 12/22/2024 CBC WITH DIFFE RENTI AL/PL ATELE T hematocrit 47.3 % 37.5-5 1.0 normal Not Available [facility] ([facility]) [address] [place], [address], 12/24/2024 13:07:43 12/22/1912/22/2024 CBC WITH DIFFE RENTI AL/PL ATELE T MCV 89 fL 79-97 normal Not Available [facility] ([facility]) [address] [place], [address], 12/24/2024 13:07:43 12/22/19 25 12/22/2024 CBC WITH DIFFE RENTI AL/PL ATELE T MCH 29.4 pg 26.6-3 3.0 normal Not Available [facility] ([facility]) [address] [place], [address], 12/24/2024 13:07:43 12/22/19 25 12/22/2024 CBC WITH DIFFE RENTI AL/PL ATELE T MCHC 33.0 g/dL 31.5-3 5.7 normal Not Available [facility] ([facility]) [address] [place], [address], 12/24/2024 13:07:43 12/22/1912/22/2024 CBC WITH DIFFE RENTI AL/PL ATELE T RDW 13.0 % 11.6-1 5.4 Not Available [facility] ([facility]) [address] [place], [address], 12/24/2024 13:07:43 12/22/1912/22/2024 CBC WITH DIFFE RENTI AL/PL ATELE T platelets 183 x10e3 /uL 150-45 0 normal Not Available [facility] ([facility]) [address], [place], [address], 12/24/2024 13:07:43 12/22/19 25 12/22/2024 CBC WITH DIFFE RENTI AL/PL ATELE T neutrophils 54 % not estab. normal Not Available [facility] ([facility]) [address], [place], [address], 12/24/2024 13:07:43 12/22/1912/22/2024 CBC WITH DIFFE RENTI AL/PL ATELE T lymphs 31 % not estab. normal Not Available [facility] ([facility]) [address], [place], [address], 12/24/2024 13:07:43 12/22/19 25 12/22/2024 CBC WITH DIFFE RENTI AL/PL ATELE T monocytes 8 % not estab. normal Not Available [facility] ([facility]) [address], [place], [address], 12/24/2024 13:07:43 12/22/19 25 12/22/2024 CBC WITH DIFFE RENTI AL/PL ATELE T eos 5 % not estab. normal Not Available [facility] ([facility]) [address], [place], [address], 12/24/2024 13:07:43 12/22/19 25 12/22/2024 CBC WITH DIFFE RENTI AL/PL ATELE T basos 2 % not estab. normal Not Available [facility] ([facility]) [address], [place], [address], 12/24/2024 13:07:43 12/22/19 25 12/22/2024 CBC WITH DIFFE RENTI AL/PL ATELE T immature cells WILDLAND FIREFIGHTER Not Available [facility] ([facility]) [address], [place], [address], 12/24/2024 13:07:43 12/22/19 25 12/22/2024 CBC WITH DIFFE RENTI AL/PL ATELE T neutrophils (absolute) 3.0 x10e3 /uL 1.4-7. 0 normal Not Available [facility] ([facility]) [address], [place], [address], 12/24/2024 13:07:43 12/22/19 25 12/22/2024 CBC WITH DIFFE RENTI AL/PL ATELE T lymphs (absolute) 1.7 x10e3 /uL 0.7-3. 1 normal Not Available [facility] ([facility]) [address], [place], [address], 12/24/2024 13:07:43 12/22/19 25 12/22/2024 CBC WITH DIFFE RENTI AL/PL ATELE T monocytes(ab solute) 0.5 x10e3 /uL 0.1-0. 9 normal Not Available [facility] ([facility]) [address] [place], [address], 12/24/2024 13:07:43 12/22/19 25 12/22/2024 CBC WITH DIFFE RENTI AL/PL ATELE T eos (absolute) 0.3 x10e3 /uL 0.0-0. 4 normal Not Available [facility] ([facility]) [address] [place], [address], 12/24/2024 13:07:43 12/22/19 25 12/22/2024 CBC WITH DIFFE RENTI AL/PL ATELE T baso (absolute) 0.1 x10e3 /uL 0.0-0. 2 normal Not Available [facility] ([facility]) [address] [place], [address], 12/24/2024 13:07:43 12/22/19 25 12/22/2024 CBC WITH DIFFE RENTI AL/PL ATELE T immature granulocytes 0 % not estab. Not Available [facility] ([facility]) [address], [place], [address], 12/24/2024 13:07:43 12/22/19 25 12/22/2024 CBC WITH DIFFE RENTI AL/PL ATELE T immature grans (abs) 0.0 x10e3 /uL 0.0-0. 1 Not Available [facility] ([facility]) [address], [place], [address], 12/24/2024 13:07:43 12/22/1912/22/2024 CBC WITH DIFFE RENTI AL/PL ATELE T NRBC WILDLAND FIREFIGHTER Not Available [facility] ([facility]) [address], [place], [address], 12/24/2024 13:07:43 12/22/19 25 12/22/2024 CBC WITH DIFFE RENTI AL/PL ATELE T hematology comments: WILDLAND FIREFIGHTER Not Available [facility] ([facility]) [address], [place], [address], 12/24/2024 13:07:43 12/22/19 25 12/22/2024 COMP. METAB OLIC PANEL (14) glucose 126 mg/dL 70-99 above high normal Not Available [facility] ([facility]) [address], [place], [address], 12/24/2024 13:07:44 12/22/19 25 12/22/2024 COMP. METAB OLIC PANEL (14) BUN 13 mg/dL 8-27 normal Not Available [facility] ([facility]) [address], [place], [address], 12/24/2024 13:07:44 12/22/19 25 12/22/2024 COMP. METAB OLIC PANEL (14) creatinine 1.08 mg/dL 0.76-1 .27 normal Not Available [facility] ([facility]) [address], [place], [address], 12/24/2024 13:07:44 12/22/19 25 12/22/2024 COMP. METAB OLIC PANEL (14) eGFR 77 mL/mi n/1.7 3 >59 normal Not Available [facility] ([facility]) [address], [place], [address], 12/24/2024 13:07:44 12/22/19 25 12/22/2024 COMP. METAB OLIC PANEL (14) BUN/creatini ne ratio 12 10-24 normal Not Available [facility] ([facility]) [address], [place], [address], 12/24/2024 13:07:44 12/22/19 25 12/22/2024 COMP. METAB OLIC PANEL (14) sodium 138 mmol/ L 134-14 4 normal Not Available [facility] ([facility]) [address], [place], [address], 12/24/2024 13:07:44 12/22/19 25 12/22/2024 COMP. METAB OLIC PANEL (14) potassium 4.1 mmol/ L 3.5-5. 2 normal Not Available [facility] ([facility]) [address], [place], [address], 12/24/2024 13:07:44 12/22/19 25 12/22/2024 COMP. METAB OLIC PANEL (14) chloride 102 mmol/ L 96-106 normal Not Available [facility] ([facility]) [address], [place], [address], 12/24/2024 13:07:44 12/22/19 25 12/22/2024 COMP. METAB OLIC PANEL (14) carbon dioxide, total 19 mmol/ L 20-29 below low normal Not Available [facility] ([facility]) [address], [place], [address], 12/24/2024 13:07:44 12/22/19 25 12/22/2024 COMP. METAB OLIC PANEL (14) calcium 9.3 mg/dL 8.6-10 .2 normal Not Available [facility] ([facility]) [address], [place], [address], 12/24/2024 13:07:44 12/22/19 25 12/22/2024 COMP. METAB OLIC PANEL (14) protein, total 7.0 g/dL 6.0-8. 5 normal Not Available [facility] ([facility]) [address] [place], [address], 12/24/2024 13:07:44 12/22/19 25 12/22/2024 COMP. METAB OLIC PANEL (14) albumin 4.5 g/dL 3.9-4. 9 normal Not Available [facility] ([facility]) [address], [place], [address], 12/24/2024 13:07:44 12/22/19 25 12/22/2024 COMP. METAB OLIC PANEL (14) globulin, total 2.5 g/dL 1.5-4. 5 Not Available [facility] ([facility]) [address] [place], [address], 12/24/2024 13:07:44 12/22/19 25 12/22/2024 COMP. METAB OLIC PANEL (14) bilirubin, total 0.4 mg/dL 0.0-1. 2 normal Not Available [facility] ([facility]) [address] [place], [address], 12/24/2024 13:07:44 12/22/19 25 12/22/2024 COMP. METAB OLIC PANEL (14) alkaline phosphatase 62 IU/L 47-123 normal Not Available [facility] ([facility]) [address] [place], [address], 12/24/2024 13:07:44 12/22/19 25 12/22/2024 COMP. METAB OLIC PANEL (14) AST (SGOT) 29 IU/L 0-40 normal Not Available [facility] ([facility]) [address] [place], [address], 12/24/2024 13:07:44 12/22/19 25 12/22/2024 COMP. METAB OLIC PANEL (14) ALT (SGPT) 30 IU/L 0-44 normal Not Available [facility] ([facility]) [address] [place], [address], 12/24/2024 13:07:44 12/22/19 25 12/22/2024 LIPID PANEL cholesterol, total 141 mg/dL 100-19 9 normal Not Available [facility] ([facility]) [address] [place], [address], 12/24/2024 13:07:44 12/22/19 25 12/22/2024 LIPID PANEL triglyceride s 179 mg/dL 0-149 above high normal Not Available [facility] ([facility]) [address] [place], [address], 12/24/2024 13:07:44 12/22/19 25 12/22/2024 LIPID PANEL HDL cholesterol 30 mg/dL >39 below low normal Not Available [facility] ([facility]) [address] [place], [address], 12/24/2024 13:07:44 12/22/19 25 12/22/2024 LIPID PANEL VLDL cholesterol marcella 31 mg/dL 5-40 Not Available [facility] ([facility]) [address] [place], [address], 12/24/2024 13:07:44 12/22/19 25 12/22/2024 LIPID PANEL LDL chol calc ([facility]) 80 mg/dL 0-99 Not Available [facility] ([facility]) [address] [place], [address], 12/24/2024 13:07:44 12/22/1912/22/2024 LIPID PANEL LDL calc comment: WILDLAND FIREFIGHTER Not Available [facility] ([facility]) [address], [place], [address], 12/24/2024 13:07:44 12/22/19 25 12/22/2024 TESTO STERO NE,FR EE AND TOTAL testosterone 418 NG/dL 264-91 6 normal Adult male refer ence inter alan is based on a popul ation of healt hy nonob patricio males (BMI <30) betwe en 19 and 39 years old. Carline marie et.al . JCEM 2017, 102;1 161-1 173. PMID: 13736 103. Not Available [facility] ([facility]) [address] [place], [address], 12/24/2024 13:07:45 12/22/19 25 12/24/2024 TESTO STERO NE,FR EE AND TOTAL free testosterone (direct) 6.5 pg/mL 6.6-18 .1 below low normal Not Available [facility] ([facility]) [address] [place], [address], 12/24/2024 13:07:45 12/22/19 25 12/22/2024 HEMOG LOBIN A1C hemoglobin A1C 6.8 % 4.8-5. 6 above high normal Predi abete s: 5.7 - 6.4 Diabe norma: >6.4 Glyce kaleigh contr ol for adult s with diabe norma: <7.0 Not Available [facility] ([facility]) [address] [place], [address], 12/24/2024 13:07:45 12/22/19 25 12/22/2024 VITAM IN [...] Medic ine). 2010. Dieta ry refer ence isabell es for calci um and D. Mari philip [place]: [facility] Press . 2. Klever tian MF, Negar wagner [place], Bisch off-F errar i DE LA CRUZ, et al. Evalu ation , treat ment, and preve ntion of vitam in D defic iency : an Endoc rine Socie ty clini marcella pract ice guide line. JCEM. 2010; 96(7) :1911 -30. Not Available [facility] ([facility]) [address], [place], [address], 12/24/2024 13:07:46 Result Notes None recorded. Problems Name Problem SNOMED Code Status Onset Date Resolution Date Notes Provider Name and Address Organization Details Recorded Time Hemorrhoids 84819682 Active 2024 Keyshawn Cast PA-C [address], [place], [address], [place] - [facility] 19:40:21 Type 2 diabetes mellitus 73276388 Active 2024 Keyshawn Cast PA-C [address], [place], [address], [place] - [facility] 5 10:48:25 Cramp 54888612 Active 2024 Keyshawn Cast PA-C [address], [place], [address], [place] - [facility] 5 10:54:22 Hypertensive disorder 11193662 Active 2024 Keyshawn Cast PA-C [address], [place], [address], [place] - [facility] 5 11:02:58 Vertigo 329733897 Active 2024 SLOANE SutherlandC [address], [place], [address], [place] [facility] 11:09:23 Wheezing 53790266 Active 2024 SLOANE SutherlandC [address], [place], [address], [place] [facility] 11:10:22 Hyperlipidemia 25761531 Active 2024 SLOANE SutherlandC [address], [place], [address], [place] [facility] 11:11:27 Abnormal vision 3982480 Active 2024 Keyshawn Cast PA-C [address], [place], [address], [place] [facility] 5 10:34:33 Vitamin D deficiency 28458184 Active 2024 Keyshawn Cast PA-C [address], [place], [address], [place] [facility] 5 10:45:28 Strain of tendon of medial thigh muscle 322615327 Active 2024 Keyshawn Cast PA-C [address], [place], [address], [place] [facility] 5 16:46:31 Skin lesion 19077459 Active 2024 Keyshawn Cast PA-C [address], [place], [address], [place] [facility] 5 09:33:42 Fatigue 28644010 Active 2024 SLOANE SutherlandC [address], [place], [address], [place] [facility] 5 09:59:10 Testosterone level below reference range 406493755 Active 2024 Keyshawn Cast PA-C [address], [place], [address], [place] [facility] 5 10:00:30 Bleeding hemorrhoids 72375725 Active 2024 Keyshawn Cast PA-C [address], [place], [address], [place] [facility] 13:42:36 Constipation 07162973 Active 2024 Keyshawn Cast PA-C [address], [place], [address], [place] - [facility] 14:01:18 Problem Notes [...] Updated DateTime 5 185.42 cm 32.3 kg/m2 789123. 13 g 76 /min 96 % 96 % 140/84 mm[Hg] Prudence Negrete [place] - [facility] 13:20:14 Social History Question Answer Notes LastModified by Organizat ion Details LastModified Time Tobacco Smoking Status Never Smoker [place], [place] - [facility] 05/21/2024 10:19:50 What Is The Highest Grade Or Level Of School You Have Completed Or The Highest Degree You Have Received? [id number] [email or web address] Information not available 05/21/2024 What Was The Date Of Your Most Recent Tobacco Screening? 08/31/2024 [email or web address] Information not available 08/31/2024 What Is Your Relationship Status? Single [email or web address] Information not available 05/21/2024 Has Tobacco Cessation Counseling Been Provided? Yes [email or web address] Information not available 06/03/2024 On What Date Was Tobacco Cessation Counseling Provided? 08/31/2024 Information not available 08/31/2024 Sex: Male Functional Status Question Answer Note LastModified by Organizat ion Details LastModified Time Do you use any illicit or recreational drugs? No [email or web address] Information not available 05/21/2024 What is your level of alcohol consumption? None [email or web address] Information not available 05/21/2024 Are you currently employed? No [email or web address] Information not available 05/21/2024 Are you able to care for yourself independently? Yes [email or web address] Information not available 05/21/2024 Mental Status None recorded. Family History Nothing Reported. Medical History No medical history recorded. Past Encounters Encounter ID Performer Location Encounter Start Date Encounter Closed Date Diagnosis/Indication Diagnosis SNOMED-CT Code Diagnosis ICD10 Code Diagnosis IMO Codes Diagnosis Note [id number] Keyshawn Cast PA-C [place] [id number] 1 12/21/2024 09:01:56 12/21/2024 10:17:43 Type 2 diabetes mellitus 09567609 E11.9 PT instructed to watch for high [...] taking medication s as prescribed . Hyperlipidemia 75054388 E78.5 Hypertensive disorder 38 064599 I10 Check BP at home. Try to [...] ER if present. Vitamin D deficiency 347 49369 E55.9 Testostero ne level below reference range 009230784 R79.89 738955 History of liver disease 562481063 Z86.19 4768706 likely acute HBV, complete hepatitis screening Active immunization 3387 9002 Z23 6731980 Declines immunizati ons as noted in HPI despite education and counseling . Hemorrhoids 81930209 K64 .9 605716730 +/- fissure, taking stool softener at home-mild reducible hemorrhoid visible -hemorroid - GI scheduled [facility] jan 04 [id number] Keyshawn Cast PA-C [facility] [address] 12/24/2024 13:11:59 12/24/2024 15:08:13 Bleeding hemorrhoids 08223746 K64.9 4319 minimal bleeding, GI scheduled Hyperlipidemia 88320554 E78.5 Constipation 50011672 K5 9.09 546535 very minimal, eliminate any constipati on given hemorrhoid pain; can continue OTC osmotic laxative (magnesium ), watch for dehydratio n Health Concerns Section Related Observation LastModified by Organization Detai ls LastModified Time None Recorded Concern Status LastModified by Organization Details LastModified Time None Recorded Payers Encounter Date Sequence Insurance Name Policy Number Policy Castro Covered Member ID Castro Member ID Guarantor Name 12/24/2024 1 [employer] (MEDICAID REPLACEMENT - HMO) Cody Boogie [id number] Cody Boogie Notes Date Note Type Note Provider Name and Address Organization Details Recorded Time 12/24/2024 text/html Patient presents to office with complaints of hemorrhoids. Patient reports pain, burning and itching. Patient states is scheduled at [facility] 01/05 with specialist. Reports able to sit comfortably, rarely noticing blood with BMs, none in bowel. Concern for throbbing pain that may or may not occur appx 2hrs after defecation, can be very bothersome. No significant constipation but BMs can be type 1-2 bristol. No other symptoms or concerns reported. Keyshawn Cast PA-C [address], [place], [address], [place] - [facility] 12/24/2024 17:31:10
--- OUTSIDE RECORDS SUMMARY | 2025-01-07 09:41 | XMS_ITS | Continuity of Care Document ---
Author Organization OSORIO Sullivan [employer] [facility] Address [address] [place] [address] Assessment Encounter Date Assessment Date Assessment LastModified by Organization Details LastModified Time 12/21/2024 12/21/2024 declines flu [email or web address] Not available 1 19:40:26 Plan of Treatment Reminders Order Date Submit Date Provider Last Modified By Organization Details Last Modified Time Details Appointments None recorded. Lab CBC w/ auto diff 2024 025 EBER [facility], [address], [address] [address], [place], [address], 13:07:43 lipid panel, serum 2024 025 EBER [facility], [address], [place] [address], [place], [address], 13:07:44 CMP, serum or plasma 2024 025 EBER [facility], [address], [place] [address], [place], [address], 13:07:44 HbA1c (hemoglobi n A1c), blood 2024 025 EBER [facility], [address], [place], [place], [address], 13:07:45 hepatitis panel (A+B+C), acute, serum 2024 025 EBER [facility], [address], [address] [address], [place], [address], 13:07:43 vitamin D, 25-hydroxy , total, serum 2024 025 EBER [facility], [address], [place] [address], [place], [address], 13:07:46 testostero ne, free + total, serum 2024 025 EBER [facility], [address], [place] [address], [place], [address], 13:07:45 Referral None recorded. Procedures None recorded. Surgeries None recorded. Imaging None recorded. Medication Orders None recorded. Patient TargetsNo targets recorded. Patient Instructions Encounter Date Encounter Id Patient Instructions Last Modified By Organization Details Last Modified Time 12/21/2024 [id number] learning about type 2 diabetes [email or web address] Not available 12/21/2024 10:01:33 type 2 diabetes: care instructions [email or web address] Not available 12/21/2024 10:01:33 high cholesterol : care instructions [email or web address] Not available 12/21/2024 10:01:33 hemorrhoids: car e instructions [email or web address] Not available 12/27/2024 19:40:33 All questions answered and pt/guardian satisfied with treatment plan. Call with changes RTC or ED if symptoms change or worsen Keep next interval checkup Cont. chronic meds as prescribed Chronic conditions are stable Discussed natural and expected course of this diagnosis and need to alert the office if symptoms do not follow expected course or if any worsens [email or web address] Not available 12/27/2024 19:40:33 Reason for Referral None Reported. Results Created [...] Antib john w/ Rfx). Not Available [facility] ([facility]) [address] [place], [address], 12/24/2024 13:07:43 12/22/1912/22/2024 HAV, HBV, HCV HBsAg screen Negati ve negati ve Not Available [facility] ([facility]) [address] [place], [address], 12/24/2024 13:07:43 12/22/1912/22/2024 HAV, HBV, HCV hep B surface Ab, qual Non Reacti ve Non React shamika: Not immun e to HBV infec tion. Anti- HBs undet ectab le or less than 10 mIU/m L. React shamika: Evide nce of HBV immun ity. Anti- HBs level s great er than 10 mIU/m L. Not Available [facility] ([facility]) [address] [place], [address], 12/24/2024 13:07:43 12/22/1912/22/2024 HAV, HBV, HCV hep B core Ab, tot Negati ve negati ve Not Available [facility] ([facility]) [address] [place], [address], 12/24/2024 13:07:43 12/22/1912/22/2024 HAV, HBV, HCV rfx to hbc IgM Commen t Refle x crite sandra was not met. Not Available [facility] ([facility]) [address] [place], [address], 12/24/2024 13:07:43 12/22/19 25 12/22/2024 HAV, HBV, HCV interpretati on Commen t [...] nce - - - TNI of vacci natio n) ----- ----- ----- ----- ----- ----- ----- ----- ----- ----- ----- ----- ----- -- Immun e due to natcornelio al tian ignacia infec tion - + + TNI [...] n); false - posit shamika anti- HBc ([facility] eptib le); low- level chron ic infec tion ; resol ving acute infec tion. Not Available [facility] ([facility]) [address] [place], [address], 12/24/2024 13:07:43 12/22/19 25 12/22/2024 HAV, HBV, HCV HCV Ab Non Reacti ve non reacti ve Not Available [facility] ([facility]) [address] [place], [address], 12/24/2024 13:07:43 12/22/19 25 12/22/2024 HAV, HBV, HCV interpretati on: Commen t Not infec jen with HCV unles s early or acute infec tion is suspe cted (whic h may be delay ed in an immun ocomp romis ed indiv idual ), or other evide nce exist s to indic ate HCV infec tion. Not Available [facility] ([facility]) [address] [facility], [place], [address], 12/24/2024 13:07:43 12/22/19 25 12/22/2024 CBC WITH DIFFE RENTI AL/PL ATELE T WBC 5.5 x10e3 /uL 3.4-10 .8 normal Not Available [facility] ([facility]) [address] [place], [address], 12/24/2024 13:07:43 12/22/19 25 12/22/2024 CBC WITH DIFFE RENTI AL/PL ATELE T RBC 5.31 x10e6 /uL 4.14-5 .80 normal Not Available [facility] ([facility]) [address] [facility], [place], [address], 12/24/2024 13:07:43 12/22/19 25 12/22/2024 CBC WITH DIFFE RENTI AL/PL ATELE T hemoglobin 15.6 g/dL 13.0-1 7.7 normal Not Available [facility] ([facility]) [address] [place], [address], 12/24/2024 13:07:43 12/22/19 25 12/22/2024 CBC WITH DIFFE RENTI AL/PL ATELE T hematocrit 47.3 % 37.5-5 1.0 normal Not Available [facility] ([facility]) [address] [place], [address], 12/24/2024 13:07:43 12/22/19 25 12/22/2024 CBC WITH DIFFE RENTI AL/PL ATELE T MCV 89 fL 79-97 normal Not Available [facility] ([facility]) [address] [facility], [place], [address], 12/24/2024 13:07:43 12/22/19 25 12/22/2024 CBC WITH DIFFE RENTI AL/PL ATELE T MCH 29.4 pg 26.6-3 3.0 normal Not Available [facility] ([facility]) [address] [facility], [place], [address], 12/24/2024 13:07:43 12/22/19 25 12/22/2024 CBC WITH DIFFE RENTI AL/PL ATELE T MCHC 33.0 g/dL 31.5-3 5.7 normal Not Available [facility] ([facility]) [address] [facility], [place], [address], 12/24/2024 13:07:43 12/22/19 25 12/22/2024 CBC WITH DIFFE RENTI AL/PL ATELE T RDW 13.0 % 11.6-1 5.4 Not Available [facility] ([facility]) [address] [facility], [place], [address], 12/24/2024 13:07:43 12/22/19 25 12/22/2024 CBC WITH DIFFE RENTI AL/PL ATELE T platelets 183 x10e3 /uL 150-45 0 normal Not Available [facility] ([facility]) [address] [place], [address], 12/24/2024 13:07:43 12/22/19 25 12/22/2024 CBC WITH DIFFE RENTI AL/PL ATELE T neutrophils 54 % not estab. normal Not Available [facility] ([facility]) [address] [place], [address], 12/24/2024 13:07:43 12/22/19 25 12/22/2024 CBC WITH DIFFE RENTI AL/PL ATELE T lymphs 31 % not estab. normal Not Available [facility] ([facility]) [address] [place], [address], 12/24/2024 13:07:43 12/22/19 25 12/22/2024 CBC WITH DIFFE RENTI AL/PL ATELE T monocytes 8 % not estab. normal Not Available [facility] ([facility]) [address] [facility], [place], [address], 12/24/2024 13:07:43 12/22/19 25 12/22/2024 CBC WITH DIFFE RENTI AL/PL ATELE T eos 5 % not estab. normal Not Available [facility] ([facility]) [address] [facility], [place], [address], 12/24/2024 13:07:43 12/22/19 25 12/22/2024 CBC WITH DIFFE RENTI AL/PL ATELE T basos 2 % not estab. normal Not Available [facility] ([facility]) [address] [facility], [place], [address], 12/24/2024 13:07:43 12/22/19 25 12/22/2024 CBC WITH DIFFE RENTI AL/PL ATELE T immature cells [employer] Not Available [facility] ([facility]) [address] [place], [address], 12/24/2024 13:07:43 12/22/19 25 12/22/2024 CBC WITH DIFFE RENTI AL/PL ATELE T neutrophils (absolute) 3.0 x10e3 /uL 1.4-7. 0 normal Not Available [facility] ([facility]) [address] [place], [address], 12/24/2024 13:07:43 12/22/19 25 12/22/2024 CBC WITH DIFFE RENTI AL/PL ATELE T lymphs (absolute) 1.7 x10e3 /uL 0.7-3. 1 normal Not Available [facility] ([facility]) [address] [place], [address], 12/24/2024 13:07:43 12/22/19 25 12/22/2024 CBC WITH DIFFE RENTI AL/PL ATELE T monocytes(ab solute) 0.5 x10e3 /uL 0.1-0. 9 normal Not Available [facility] ([facility]) [address] [facility], [place], [address], 12/24/2024 13:07:43 12/22/19 25 12/22/2024 CBC WITH DIFFE RENTI AL/PL ATELE T eos (absolute) 0.3 x10e3 /uL 0.0-0. 4 normal Not Available [facility] ([facility]) [address] [place], [address], 12/24/2024 13:07:43 12/22/19 25 12/22/2024 CBC WITH DIFFE RENTI AL/PL ATELE T baso (absolute) 0.1 x10e3 /uL 0.0-0. 2 normal Not Available [facility] ([facility]) [address] [place], [address], 12/24/2024 13:07:43 12/22/19 25 12/22/2024 CBC WITH DIFFE RENTI AL/PL ATELE T immature granulocytes 0 % not estab. Not Available [facility] ([facility]) [address] [place], [address], 12/24/2024 13:07:43 12/22/19 25 12/22/2024 CBC WITH DIFFE RENTI AL/PL ATELE T immature grans (abs) 0.0 x10e3 /uL 0.0-0. 1 Not Available [facility] ([facility]) [address] [place], [address], 12/24/2024 13:07:43 12/22/19 25 12/22/2024 CBC WITH DIFFE RENTI AL/PL ATELE T NRBC [employer] Not Available [facility] ([facility]) [address] [place], [address], 12/24/2024 13:07:43 12/22/19 25 12/22/2024 CBC WITH DIFFE NAE AL/SILAS MONTERO T hematology comments: [employer] H[employer] MA[employer]GER Not Available [facility] ([facility]) [address] [facility], [place], [address], 12/24/2024 13:07:43 12/22/19 25 12/22/2024 COMP. METAB OLIC PANEL (14) glucose 126 mg/dL 70-99 above high normal Not Available [facility] ([facility]) [address] [facility], [place], [address], 12/24/2024 13:07:44 12/22/19 25 12/22/2024 COMP. METAB OLIC PANEL (14) BUN 13 mg/dL 8-27 normal Not Available [facility] ([facility]) [address] [facility], [place], [address], 12/24/2024 13:07:44 12/22/19 25 12/22/2024 COMP. METAB OLIC PANEL (14) creatinine 1.08 mg/dL 0.76-1 .27 normal Not Available [facility] ([facility]) [address] [facility], [place], [address], 12/24/2024 13:07:44 12/22/19 25 12/22/2024 COMP. METAB OLIC PANEL (14) eGFR 77 mL/mi n/1.7 3 >59 normal Not Available [facility] ([facility]) [address] [facility], [place], [address], 12/24/2024 13:07:44 12/22/19 25 12/22/2024 COMP. METAB OLIC PANEL (14) BUN/creatini ne ratio 12 10-24 normal Not Available [facility] ([facility]) [address] [facility], [place], [address], 12/24/2024 13:07:44 12/22/19 25 12/22/2024 COMP. METAB OLIC PANEL (14) sodium 138 mmol/ L 134-14 4 normal Not Available [facility] ([facility]) [address] [place], [address], 12/24/2024 13:07:44 12/22/19 25 12/22/2024 COMP. METAB OLIC PANEL (14) potassium 4.1 mmol/ L 3.5-5. 2 normal Not Available [facility] ([facility]) [address] [place], [address], 12/24/2024 13:07:44 12/22/19 25 12/22/2024 COMP. METAB OLIC PANEL (14) chloride 102 mmol/ L 96-106 normal Not Available [facility] ([facility]) [address] [place], [address], 12/24/2024 13:07:44 12/22/19 25 12/22/2024 COMP. METAB OLIC PANEL (14) carbon dioxide, total 19 mmol/ L 20-29 below low normal Not Available [facility] ([facility]) [address] [place], [address], 12/24/2024 13:07:44 12/22/19 25 12/22/2024 COMP. METAB OLIC PANEL (14) calcium 9.3 mg/dL 8.6-10 .2 normal Not Available [facility] ([facility]) [address] [place], [address], 12/24/2024 13:07:44 12/22/19 25 12/22/2024 COMP. METAB OLIC PANEL (14) protein, total 7.0 g/dL 6.0-8. 5 normal Not Available [facility] ([facility]) [address] [place], [address], 12/24/2024 13:07:44 12/22/19 25 12/22/2024 COMP. METAB OLIC PANEL (14) albumin 4.5 g/dL 3.9-4. 9 normal Not Available [facility] ([facility]) [address] [facility] [place] [place], [address], 12/24/2024 13:07:44 12/22/19 25 12/22/2024 COMP. METAB OLIC PANEL (14) globulin, total 2.5 g/dL 1.5-4. 5 Not Available [facility] ([facility]) [address] [facility] [place] [place], [address], 12/24/2024 13:07:44 12/22/19 25 12/22/2024 COMP. METAB OLIC PANEL (14) bilirubin, total 0.4 mg/dL 0.0-1. 2 normal Not Available [facility] ([facility]) [address] [facility], [place], [address], 12/24/2024 13:07:44 12/22/19 25 12/22/2024 COMP. METAB OLIC PANEL (14) alkaline phosphatase 62 IU/L 47-123 normal Not Available [facility] ([facility]) [address] [facility] [place], [address], 12/24/2024 13:07:44 12/22/19 25 12/22/2024 COMP. METAB OLIC PANEL (14) AST (SGOT) 29 IU/L 0-40 normal Not Available [facility] ([facility]) [address] [facility] [place], [address], 12/24/2024 13:07:44 12/22/19 25 12/22/2024 COMP. METAB OLIC PANEL (14) ALT (SGPT) 30 IU/L 0-44 normal Not Available [facility] ([facility]) [address] [facility] [place], [address], 12/24/2024 13:07:44 12/22/19 25 12/22/2024 LIPID PANEL cholesterol, total 141 mg/dL 100-19 9 normal Not Available [facility] ([facility]) [address] [place], [address], 12/24/2024 13:07:44 12/22/19 25 12/22/2024 LIPID PANEL triglyceride s 179 mg/dL 0-149 above high normal Not Available [facility] ([facility]) [address] [place], [address], 12/24/2024 13:07:44 12/22/19 25 12/22/2024 LIPID PANEL HDL cholesterol 30 mg/dL >39 below low normal Not Available [facility] ([facility]) [address] [place], [address], 12/24/2024 13:07:44 12/22/1912/22/2024 LIPID PANEL VLDL cholesterol marcella 31 mg/dL 5-40 Not Available [facility] ([facility]) [address] [place], [address], 12/24/2024 13:07:44 12/22/19 25 12/22/2024 LIPID PANEL LDL chol calc ([facility]) 80 mg/dL 0-99 Not Available [facility] ([facility]) [address] [place], [address], 12/24/2024 13:07:44 12/22/19 25 12/22/2024 LIPID PANEL 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 Carline marie et.al . JCEM 2017, 102;1 161-1 173. PMID: 27489 103. Not Available [facility] ([facility]) [address] [facility], [place], [address], 12/24/2024 13:07:45 12/22/1912/24/2024 TESTO STERO NE,FR EE AND TOTAL free testosterone (direct) 6.5 pg/mL 6.6-18 .1 below low normal Not Available [facility] ([facility]) [address] [facility], [place], [address], 12/24/2024 13:07:45 12/22/1912/22/2024 HEMOG LOBIN A1C hemoglobin A1C 6.8 % 4.8-5. 6 above high normal Predi abete s: 5.7 - 6.4 Diabe norma: >6.4 Glyce kaleigh contr ol for adult s with diabe norma: <7.0 Not Available [facility] ([facility]) [address] [facility], [place], [address], 12/24/2024 13:07:45 12/22/1912/22/2024 VITAM IN D, 25-HY DROXY vitamin D, [...] um and D. Mari philip [place]: The [facility] Press . 2. Klever tian MF, Negar wagner [place], Ramin off-F kelli i DE LA CRUZ, et al. Evalu ation , treat ment, and preve ntion of vitam in D defic iency : an Endoc rine Socie ty clini marcella pract ice guide line. JCEM. 2010; 96(7) :1911 -30. Not Available [facility] ([facility]) [address], [place], [address], 12/24/2024 13:07:46 Result Notes None recorded. Problems Name Problem SNOMED Code Status Onset Date Resolution Date Notes Provider Name and Address Organization Details Recorded Time Hemorrhoids 10398955 Active 2024 Keyshawn Cast PA-C [address], [place], [address], [place] - [facility] 19:40:21 Type 2 diabetes mellitus 29776465 Active 2024 Keyshawn Cast PA-C [address], [place], [address], [place] [facility] 10:48:25 Cramp 37922383 Active 2024 Keyshawn Cast PA-C [address], [place], [address], [place] [facility] 10:54:22 Hypertensive disorder 98234712 Active 2024 Keyshawn Cast PA-C [address], [place], [address], [place] [facility] 11:02:58 Vertigo 388352159 Active 2024 Keyshawn Cast PA-C [address], [place], [address], [place] [facility] 11:09:23 Wheezing 49791267 Active 2024 Keyshawn Cast PA-C [address], [place], [address], [place] [facility] 11:10:22 Hyperlipidemia 52588127 Active 2024 Keyshawn Cast PA-C [address], [place], [address], [place] [facility] 11:11:27 Abnormal vision 2566490 Active 2024 Keyshawn Cast PA-C [address], [place], [address], [place] [facility] 04/02/202 5 10:34:33 Vitamin D deficiency 13042447 Active 2024 Keyshawn Cast GILLNateZabrina [address], [place], [address], [place] [facility] 5 10:45:28 Strain of tendon of medial thigh muscle 352028067 Active 2024 GILL SutherlandNateZabrina [address], [place], [address], [place] [facility] 5 16:46:31 Skin lesion 60542468 Active 2024 Keyshawn Cast MONIE [address], [place], [address], [place] [facility] 5 09:33:42 Fatigue 99768873 Active 2024 Keyshawn aCst SLOANEZabrina [address], [place], [address], [place] - [facility] 5 09:59:10 Testosterone level below reference range 704288775 Active 2024 Keyshawn CastSLOANEZabrina [address], [place], [address], [place] [facility] 5 10:00:30 Bleeding hemorrhoids 05058419 Active 2024 Keyshawn YoonSLOANE navarroZabrina [address], [place], [address], [place] - [facility] 5 13:42:36 Constipation 63684915 Active 2024 Keyshawn Yoonramon GILLNateZabrina [address], [place], [address], [place] - [facility] 5 14:01:18 Problem Notes None recorded. Medical Equipment [...] and Address Organization Details Last Updated DateTime 185.42 cm 32.3 kg/m2 532607. 13 g 83 /min 97 % 97 % 18 /min 142/90 mm[Hg] Patricia leon [place] - [facility] 09:29:37 Date Recorded Body height Body mass index (BMI) Body weight Heart rate Oxygen saturation Oxygen saturation in Arterial blood by Pulse oximetry Systolic And Diastolic Provider Name and Address Organization Details Last Updated DateTime 185.42 cm 32.3 kg/m2 683938. 13 g 76 /min 96 % 96 % 140/84 mm[Hg] Prudence Negrete [place] - [facility] 13:20:14 Social History Question Answer Notes LastModified by Organizat ion Details LastModified Time Tobacco Smoking Status Never Smoker Prudence Negrete [facility], [place] - [facility] 05/21/2024 10:19:50 What Is The Highest Grade Or Level Of School You Have Completed Or The Highest Degree You Have Received? [id number] Information not available 05/21/2024 What Was The Date Of Your Most Recent Tobacco Screening? 08/31/2024 [email or web address] Information not available 08/31/2024 What Is Your Relationship Status? Single [email or web address] Information not available 05/21/2024 Has Tobacco Cessation Counseling Been Provided? Yes [email or web address] Information not available 06/03/2024 On What Date Was Tobacco Cessation Counseling Provided? 08/31/2024 [email or web address] Information not available 08/31/2024 Sex: Male Functional Status Question Answer Note LastModified by Organizat ion Details LastModified Time Do you use any illicit or recreational drugs? No [email or web address] Information not available 05/21/2024 What is your level of alcohol consumption? None [email or web address] Information not available 05/21/2024 Are you currently employed? No [email or web address] Information not available 05/21/2024 Are you able to care for yourself independently? Yes Information not available 05/21/2024 Mental Status None recorded. Family History Nothing Reported. Medical History No medical history recorded. Past Encounters Encounter ID Performer Location Encounter Start Date Encounter Closed Date Diagnosis/Indication Diagnosis SNOMED-CT Code Diagnosis ICD10 Code Diagnosis IMO Codes Diagnosis Note [id number] Keyshawn Cast PA-C [address] [address] 12/21/2024 09:01:56 12/21/2024 10:17:43 Type 2 diabetes mellitus 68011429 E11.9 PT instructed to watch for high [...] taking medication s as prescribed . Hyperlipidemia 94727546 E78.5 Hypertensive disorder 38 704782 I10 Check BP at home. Try to [...] ER if present. Vitamin D deficiency 347 15218 E55.9 Testostero ne level below reference range 223570951 R79.89 174216 History of liver disease 526576610 Z86.19 5602842 likely acute HBV, complete hepatitis screening Active immunization 3387 9002 Z23 3585450 Declines immunizati ons as noted in HPI despite education and counseling . Hemorrhoids 57337789 K64 .9 [id number] +/- fissure, taking stool softener at home-mild reducible hemorrhoid visible -hemorroid - GI scheduled [facility] jan 04 Health Concerns Section Related Observation LastModified by Organization Detai ls LastModified Time None Recorded Concern Status LastModified by Organization Details LastModified Time None Recorded Payers Encounter Date Sequence Insurance Name Policy Number Policy Castro Covered Member ID Castro Member ID Guarantor Name 12/21/2024 1 [employer] (MEDICAID REPLACEMENT - HMO) Cody Boogie [id number] Cody Boogie Notes Date Note Type Note Provider Name and Address Organization Details Recorded Time 5 text/html 64yoM presents for FU. Concern for Low testosterone given fatigue. DMII last A1C 7.9, greatly improved from prior. No concerns for lows. Has GI scheduled [facility] jan 04 for hemorroids. Pt denies chest [...] office Health Maintenance[facility]: Flu:Covid:Tdap (Q10):UTD reports 3 yrs ago receivedShingles (50+): will talk to pharmacistPneumonia (65+):Colon Cancer Screening (45+): 2yrs ago colonoscopy in [place] thinks 3-5yr repeat Smoker: years ago (10-12yrs quit), 2ppd or less for 20yrs; had lung cancer screening 2015 AAA (65+):PSA: Discussed risks vs benefits of screening, patient electing to proceed with screening at this time. Keyshawn Cast PA-C [address], [place], [address], [employer] [facility] 12/27/2024 19:41:45 text/html Patient presents to office with complaints of hemorrhoids. Patient reports pain, burning and itching. Patient states is scheduled at [facility] 01/05 with specialist. Reports able to sit comfortably, rarely noticing blood with BMs, none in bowel. Concern for throbbing pain that may or may not occur appx 2hrs after defecation, can be very bothersome. No significant constipation but BMs can be type 1-2 bristol. No other symptoms or concerns reported. Keyshawn Cast PA-C [address], [place], [address], [employer] - [facility] 12/24/2024 17:31:10
[2025-01-08 09:25] LABS: Hep B Core Ab, Total Negative (Negative)
== END 2025-01-07 23:59 | disposition home or self-care (01) ==
LOC: LAB 09:37
PROVIDERS: PCP Student in an Organized Health Care Education/Training Program; Visit Provider Nurse Practitioner Family
DX: Z86.19 Personal history of other infectious and parasitic diseases (principal)
CPT/HCPCS: 36415; 80074; 87522

== ENCOUNTER 2025-02-17 06:15 | Day surgery (SDC) | payer MEDICAID, SELFPAY ==
--- NOTE | 2025-02-11 07:07 | EXP.HP ---
History of Present Illness *Admission Date: 02/17/25 *History of present illness: Mr. Boogie is a 64-year-old gentleman who is here for diagnostic colonoscopy. After his incarceration he went home in April and developed constipation and bleeding internal hemorrhoids. He was seen by Lion Glaser M.D. who elected no invasive management. He was taking a colon cleanse liquid once a week to keep his bowels moving. He reports no abdominal pain or weight loss. He reports no family history of colitis, Crohn's disease or colon cancer. He did have a colonoscopy about 2 years ago and does not know the findings. He was given a 2-year surveillance interval. The patient does report that about 20 years ago he became ill in [facility] and had to return back to [place] and was diagnosed with acute hepatitis (and his recent hepatitis testing was an acute panel and did not test for hepatitis A IgG or hepatitis B surface antibody which would determine whether he formerly had either). His hepatitis C testing is negative. The examination is deemed medically necessary for diagnostic colonoscopy. The patient has been seen, interviewed and examined prior to the procedure by both myself and the anesthesia provider. [facility] Disclaimer: The information contained in this section may have been updated after the patient was seen, as this information can be updated by other users. Medical History (Updated 02/17/25 @ 06:41 by Will Sam RN) HLD (hyperlipidemia) HTN (hypertension) Diabetes mellitus, type 2 Surgical History History of colonoscopy Family History Other Thyroid cancer Social History (Updated 02/17/25 @ 07:12 by David Farmer CRNA) Smoking Status: Never smoker alcohol intake: never substance use type: denies use current occupational status: retired Travel in the last 8 weeks?: None Have you lived/traveled outside US in past 30 days?: No Contact w/someone who lives/traveled outside US past 30 days?: No Exposure to someone with infectious disease in past 14 days?: No Do you have a fever (greater than 100.4 F or 38 C)?: No Have you tested positive for COVID-19?: No Exposed to someone with COVID-19 in past 14 days?: No Do you have a sore throat?: No Do you have a cough?: No Do you have any weakness?: No Are you experiencing any nausea/vomitting?: No Do you have any diarrhea?: No Are you experiencing any unusual bleeding?: No Do you have any muscle aches/pain?: No Do you have any abdominal pain?: No Are you experiencing loss of taste or smell?: No Other Medical History Have you received the Pneumonia Vaccine: No Review of Systems Review of Systems Review of systems (narrative): Negative *Cardiovascular Comments: Negative *Gastrointestinal Comments: Negative *Genitourinary Comments: Negative *Musculoskeletal Comments: Negative *Neurologic Comments: Negative Meds Home Medications and Allergies Home Medications ?Medication ?Instructions ?Recorded ?Confirmed ?Type albuterol sulfate 90 mcg/actuation 90 mcg inhalation DAILY 06/17/24 02/17/25 History aerosol inhaler (Ventolin HFA) amlodipine 5 mg tablet 5 mg PO DAILY 06/17/24 02/17/25 History atorvastatin 20 mg tablet 20 mg PO DAILY 06/17/24 02/17/25 History ergocalciferol (vitamin D2) 1,250 1,250 mcg PO DAILY 06/17/24 02/17/25 History mcg (50,000 unit) capsule lisinopril 40 mg tablet 40 mg PO DAILY 06/17/24 02/17/25 History meclizine 12.5 mg tablet 12.5 mg PO DAILY 06/17/24 02/17/25 History metformin 1,000 mg tablet 1,000 mg PO DAILY 06/17/24 02/17/25 History blood sugar diagnostic (FreeStyle #10 ea 01/07/25 02/17/25 History Lite Strips) blood-glucose meter (FreeStyle #1 ea 01/07/25 01/07/25 History Lite Meter kit) dapagliflozin propanediol 10 mg 10 mg PO DAILY 01/07/25 02/17/25 History tablet (Farxiga) glipizide 5 mg tablet 5 mg PO BID 01/07/25 02/17/25 History lidocaine 3 %-hydrocortisone 0.5 % 1 applic topical DAILY 01/07/25 02/17/25 History topical cream amlodipine 5 mg tablet 5 mg PO DAILY 02/17/25 02/17/25 History atorvastatin 20 mg tablet 20 mg PO DAILY 02/17/25 02/17/25 History New Prescriptions to Start Prescriptions: Allergies Allergy/AdvReac Type Severity Reaction Status Date / Time No Known Allergies Allergy Verified 02/16/25 12:23 Exam *Routine HEENT Exam Head: Present normocephalic Eye: Present EOMI and PERRL ENT: Present mucous membranes moist *Routine Neck Exam Neck: Present supple *Routine Respiratory Exam Respiratory: Present CTA bilaterally *Routine Cardiovascular Exam Cardiovascular: Present RRR *Routine Abdominal Exam Abdominal: Present soft and normoactive bowel sounds; Absent tenderness *Routine Rectal Exam Rectal:: deferred *Routine Genitalia Exam Genitalia:: deferred *Routine Extremities Exam Extremities: Absent cyanosis, clubbing or edema *Routine Skin Exam Skin: Present warm; Absent rash *Routine Neurological Exam Neurological: Present alert and oriented X3 Assessment and Plan *Assessment and plan (1) Bright red blood per rectum: Status: Acute Category: Medical Code(s): K62.5 - Hemorrhage of anus and rectum (2) Constipation: Status: Chronic Qualifiers: Constipation type: unspecified constipation type Qualified Code(s): K59.00 - Constipation, unspecified Category: Medical Code(s): K59.00 - Constipation, unspecified (3) Change in bowel habits: Status: Acute Category: Medical Code(s): R19.4 - Change in bowel habit Plan A/P: 1. Bright red rectal bleeding with change in bowel habits and worsening constipation is the preprocedural diagnosis. The patient will be anesthetized/sedated using MAC sedation. The patient has been seen and examined. Cardiac and lung assessment prior to the examination is stable. Proceed with planned diagnostic colonoscopy.
[2025-02-16 12:29] VITALS: BMI 32.7
[2025-02-17 06:41] VITALS: BP 129/93; PULSE 75; RESP 18; TEMP 36.1; O2SAT 94
[2025-02-17] MEDS: LACTATED RINGERS 1000ML 1,000 ML 50 ML IV (06:50)
--- NOTE | 2025-02-17 07:02 | P.PCN_ITS ---
[facility] Procedure Note Date: 02/17/25 Time: 08:22 Procedure Note:: Colonoscopy Procedure Report: Colonoscopy with cold snare polypectomy and hemorrhoid band ligation Endoscopist: Pepe West II, MD Referring physician: Keyshawn Cast PA-C, [address] [place] [address] , [place] [address] Date of Procedure: February 17, 2025 Equipment: Olympus [id number] adult colonoscope Sedation: MAC sedation Indication: Mr. Boogie is a 64-year-old gentleman who is here for diagnostic colonoscopy. He went home (after incarceration) in April and developed constipation and bleeding internal hemorrhoids. He was seen by Lion Glaser M.D. who elected no invasive management. He was taking a colon cleanse liquid once a week to keep his bowels moving. He reports no abdominal pain or weight loss. He reports no family history of colitis, Crohn's disease or colon cancer. He did have a colonoscopy about 2 years ago and does not know the findings. He was given a 2-year surveillance interval. The patient does report that about 20 years ago he became ill in [facility] and had to return back to [place] and was diagnosed with acute hepatitis (and his recent hepatitis testing was an acute panel and did not test for hepatitis A IgG or hepatitis B surface antibody which would determine whether he formerly had either). His hepatitis C testing is negative. The examination is deemed medically necessary for diagnostic colonoscopy. Procedure: Prior to the procedure, a history and physical exam was performed, and patient's medications and allergies were reviewed. The risks, benefits and alternatives of the sedation and procedure were discussed with the patient. All questions were answered and informed consent was obtained. The patient was brought to the procedure room. Patient identification and proposed procedure were verified by the physician and the nurse. The patient was placed in a left lateral decubitus position and the scope was passed under direct vision. Throughout the procedure, the patient's blood pressure, pulse, and oxygen saturations were monitored continuously. The colonoscopy was accomplished without difficulty. The patient tolerated the procedure well. Findings: On digital rectal examination there was normal rectal tone. There were no external hemorrhoids. There was a posterior midline anal fissure. The prostate was 2+, smooth, soft, symmetric without nodules. The colonoscope was introduced through the anal canal to the rectum and advanced to the cecum. The ileocecal valve and appendiceal orifice were identified. The scope was advanced a short distance into the ileum which appeared grossly normal. The scope was then withdrawn into the colon. The cecum, ascending and transverse colon and mucosa were grossly normal. There were 2 diminutive polyps (transverse x 1 (5 mm) and rectum x 1 (4 mm)). These were both removed via cold snare polypectomy. There were scattered diverticuli throughout the descending and sigmoid colon (LEFT colon). The rectum itself was normal. Upon retroflexion within the rectum there were grade 2-3 internal hemorrhoids. 3 columns of hemorrhoids were banded using 3 bands with excellent ligation effect. The preparation was excellent throughout with [place] Preparation Score of 9. The cecal time was 15 minutes. Impression: 1. Diminutive colonic polyps x 2 2. Left-sided diverticulosis 3. Grade 2-3 internal hemorrhoids status post band ligation x 3 4. Posterior midline anal fissure Plan: I will follow-up the polyp histology and recommend repeat screening/surveillance colonoscopy again in 7 years. I would encourage psyllium bulking fiber supplementation on a long-term daily maintenance basis.
--- NOTE | 2025-02-17 07:10 | P.PNANES_ITS ---
[facility] Disclaimer: The information contained in this section may have been updated after the patient was seen, as this information can be updated by other users. Medical History (Updated 02/17/25 @ 06:41 by Will Sam RN) HLD (hyperlipidemia) HTN (hypertension) Diabetes mellitus, type 2 Surgical History History of colonoscopy Family History Other Thyroid cancer Social History Smoking Status: Never smoker alcohol intake: never substance use type: denies use current occupational status: retired Travel in the last 8 weeks?: None [facility] Anesthesia Checklist Patient Identification Patient Identification: Arm Band and Family Structural Data Admitted From: Home Planned Operative Procedure/s: Colonoscopy Consent for Planned Operative Procedure(s) Verified: Yes Verified Documents: Surgical Consent and History and Physical NPO Status Verified Time NPO: 00:00 Additional verifications Patient : No Anesthesia Reactions: No Hx Blood Transfusions: No Blood Transfusion Reaction: No Cephalosporin Allergy: No Previous Colonoscopy: Yes Airway Assessment Mallampati Score:: Class III C-Spine Mobility Assessed: Yes TMJ Mobility Assessed: Yes Dentition: Edentulous Neurological Assessment Level of Consciousness: Awake, Alert, Appropriate and Follows Commands Hx Seizures: Yes Numbness or tingling in extremities: No Anesthesia Plan Anesthesia Risk discussed: Yes ASA Class: II Anesthesia Type: MAC Preoperative Comments Pre-Operative Comments: Seizure over 20 years ago, type unknown. Hemorrhoids. Other than colonoscopy, no other anesthesia.
[2025-02-17 07:56] LABS: POC Glucose,Bedside 116 gm/dL (70-110)
[2025-02-17 08:32] VITALS: BP 90/59; PULSE 73; RESP 18; TEMP 36.1; O2SAT 90
[2025-02-17 08:42] VITALS: BP 105/72; PULSE 61; O2SAT 91
[2025-02-17 08:52] VITALS: BP 104/65; PULSE 62; O2SAT 94
[2025-02-17 09:02] VITALS: BP 105/63; PULSE 57; O2SAT 93
== END 2025-02-17 09:02 | disposition home or self-care (01) ==
PROVIDERS: PCP Student in an Organized Health Care Education/Training Program; Visit Provider Internal Medicine Gastroenterology
PROC: 0DJD8ZZ Inspection of Lower Intestinal Tract, Via Natural or Artificial Opening Endoscopic (ICD-10-PCS; CPT 45378; principal; 2025-02-17 08:00)
DX: K64.2 Third degree hemorrhoids (principal); K57.90 Diverticulosis of intestine, part unspecified, without perforation or abscess without bleeding; K59.00 Constipation, unspecified; K60.2 Anal fissure, unspecified; D12.3 Benign neoplasm of transverse colon; K63.5 Polyp of colon; I10 Essential (primary) hypertension; E78.5 Hyperlipidemia, unspecified; E11.9 Type 2 diabetes mellitus without complications; Z79.899 Other long term (current) drug therapy; Z79.84 Long term (current) use of oral hypoglycemic drugs; K62.5 Hemorrhage of anus and rectum
CPT/HCPCS: 45385; 45398; 82962; C1889; J2003; J2704; J7120